=== PATIENT | female | born 1970 | race Caucasian/White ===

== ENCOUNTER 2016-08-27 13:16 | Emergency (ER) | payer OTHER ==
--- NOTE | 2016-08-27 13:40 | ER Document Report ---
ED Medical Screen (RME) - General Chief Complaint: Headache Stated Complaint: HEADACHE Notes: migraine [place] for 1 week. TRAVEL OUTSIDE OF THE [place] IN LAST 30 DAYS: No - Related Data Allergies/Adverse Reactions: nitrofurantoin [From Macrobid] Allergy (Intermediate, Verified 08/27/16 13:37) liver enlargement nitrofurantoin macrocrystalline [From Macrobid] Allergy (Intermediate, Verified 08/27/16 13:37) liver enlargement Past Medical History - Social History Chew tobacco use (# tins/day): No Frequency of alcohol use: None Drug Abuse: None - Past Medical History Cardiac Medical History: Reports: Hx Atrial Fibrillation, Hx Hypercholesterolemia Denies: Hx Heart Attack, Hx Hypertension Pulmonary Medical History: Reports: Hx Asthma, Hx Pneumonia Denies: Hx Bronchitis, Hx COPD Neurological Medical History: Denies: Hx Seizures Renal/ Medical History: Reports: Hx Kidney Stones, Hx Ovarian Cysts. Denies: Hx Peritoneal Dialysis GI Medical History: Reports: Hx Gastroesophageal Reflux Disease, Hx Colonoscopy , Hx Endoscopy Musculoskeltal Medical History: Denies Hx Arthritis, Reports Hx Musculoskeletal Trauma Psychiatric Medical History: Denies: Hx Depression Traumatic Medical History: Reports: Hx Fractures Past Surgical History: Reports: Hx Appendectomy, Hx Nose Surgery - sinus sx x 5 , Hx Orthopedic Surgery - bunion, Hx Tonsillectomy, Hx Tubal Ligation. Denies: Hx Hysterectomy - Immunizations Hx Diphtheria, Pertussis, Tetanus Vaccination: No Physical Exam - Vital signs Vitals: Temp Pulse Resp BP Pulse Ox 98.2 F 95 16 114/81 100 08/27/16 13:31 08/27/16 13:31 08/27/16 13:31 08/27/16 13:31 08/27/16 13:31 Course - Vital Signs Vital signs: Temp Pulse Resp BP Pulse Ox 98.2 F 95 16 114/81 100 08/27/16 13:31 08/27/16 13:31 08/27/16 13:31 08/27/16 13:31 08/27/16 13:31
[2016-08-27 14:26] LABS: ABSOLUTE EOSINOPHILS # (AUTO) 0.1 10^3/uL (0.0-0.6); ABSOLUTE LYMPHOCYTES (AUTO) 2.2 10^3/uL (0.5-4.7); ABSOLUTE MONOCYTES (AUTO) 0.6 10^3/uL (0.1-1.4); ABSOLUTE NEUT (AUTO) 4.1 10^3/uL (1.7-8.2); BASOPHILS % (AUTO) 0.4 % (0-2); EOSINOPHILS % (AUTO) 2.1 % (0-6); HEMATOCRIT 42.5 % (36.0-47.0); HEMOGLOBIN 14.2 g/dL (12.0-15.5); HGB HCT DIFFERENCE 0.1; LYMPHOCYTES % (AUTO) 30.8 % (13-45); MEAN CORPUSCULAR HEMOGLOBIN 30.3 pg (27.0-33.4); MEAN CORPUSCULAR HGB CONC 33.5 g/dL (32.0-36.0); MEAN CORPUSCULAR VOLUME 91 fl (80-97); MONOCYTES % (AUTO) 9.2 % (3-13); RED BLOOD COUNT 4.69 10^6/uL (3.72-5.28); RED CELL DISTRIBUTION WIDTH 14.1 % (11.5-14.0); SEGMENTED NEUTROPHILS % (AUTO) 57.5 % (42-78); WHITE BLOOD COUNT 7.1 10^3/uL (4.0-10.5)
[2016-08-27 14:28] LABS: APPEARANCE,URINE SLIGHTLY-CLOUDY; BILIRUBIN,URINE NEGATIVE (NEGATIVE); GLUCOSE, URINE NEGATIVE (NEGATIVE); KETONES,URINE NEGATIVE (NEGATIVE); LEUKOCYTE ESTERASE,URINE TRACE (NEGATIVE); NITRITE,URINE NEGATIVE (NEGATIVE); PROTEIN,URINE NEGATIVE (NEGATIVE); URINE SPECIFIC GRAVITY 1.016; UROBILINOGEN,URINE NEGATIVE mg/dL (<2.0)
[2016-08-27 14:37] LABS: ALANINE AMINOTRANSFERASE 33 U/L (9-52); ALBUMIN 4.5 g/dL (3.5-5.0); ALKALINE PHOSPHATASE 82 U/L (38-126); ANION GAP 12 (5-19); ASPARTATE AMINO TRANSFERASE 19 U/L (14-36); BILIRUBIN,TOTAL 0.5 mg/dL (0.2-1.3); BLOOD UREA NITROGEN 13 mg/dL (7-20); CALCIUM 9.6 mg/dL (8.4-10.2); CARBON DIOXIDE 25 mmol/L (22-30); CHLORIDE 106 mmol/L (98-107); CREATININE RESULT 0.79 mg/dL (0.52-1.25); GLUCOSE 71 mg/dL (75-110); POTASSIUM 4.9 mmol/L (3.6-5.0); SODIUM 142.8 mmol/L (137-145); TOTAL PROTEIN 7.3 g/dL (6.3-8.2)
[2016-08-27] MEDS ORDERED: DIPHENHYDRAMINE HCL 50 MG CAPSULE PO ONE (16:33)
[2016-08-27] MEDS ORDERED: PROCHLORPERAZINE EDISYLATE INJ 10 MG/2 ML VIAL IM ONE (16:33)
--- NOTE | 2016-08-27 17:45 | ER Document Report ---
ED General - General Chief Complaint: Headache Stated Complaint: HEADACHE Mode of Arrival: Ambulatory Information source: Patient Notes: 46-year-old female history of chronic migraine headaches and multiple previous episodes of sinusitis presents with complaints of right-sided pain from her eye to her head. Patient denies any nasal discharge but notes previous sinusitis had no discharge either. Denies any fevers or chills nausea vomiting or diarrhea denies any light sensitivity TRAVEL OUTSIDE OF THE [place] IN LAST 30 DAYS: No - HPI Onset: Last week Onset/Duration: Persistent Quality of pain: Achy Severity: Mild Pain Level: 1 Associated symptoms: Headache, Nausea Exacerbated by: Denies Relieved by: Denies Similar symptoms previously: Yes Recently seen / treated by doctor: Yes - patient seen by Dr. velazquez - Related Data Allergies/Adverse Reactions: nitrofurantoin [From Macrobid] Allergy (Intermediate, Verified 08/27/16 13:37) liver enlargement nitrofurantoin macrocrystalline [From Macrobid] Allergy (Intermediate, Verified 08/27/16 13:37) liver enlargement Past Medical History - Social History Smoking Status: Never Smoker Cigarette use (# per day): No Chew tobacco use (# tins/day): No Smoking Education Provided: No Frequency of alcohol use: None Drug Abuse: None Family History: Arthritis, CAD, CVA, DM, Hyperlipidemia, Hypertension Patient has suicidal ideation: No Patient has homicidal ideation: No - Past Medical History Cardiac Medical History: Reports: Hx Atrial Fibrillation, Hx Hypercholesterolemia Denies: Hx Heart Attack, Hx Hypertension Pulmonary Medical History: Reports: Hx Asthma, Hx Pneumonia Denies: Hx Bronchitis, Hx COPD Neurological Medical History: Denies: Hx Seizures Renal/ Medical History: Reports: Hx Kidney Stones, Hx Ovarian Cysts. Denies: Hx Peritoneal Dialysis GI Medical History: Reports: Hx Gastroesophageal Reflux Disease, Hx Colonoscopy , Hx Endoscopy Musculoskeltal Medical History: Denies Hx Arthritis, Reports Hx Musculoskeletal Trauma Psychiatric Medical History: Denies: Hx Depression Traumatic Medical History: Reports: Hx Fractures Past Surgical History: Reports: Hx Appendectomy, Hx Nose Surgery - sinus sx x 5 , Hx Orthopedic Surgery - bunion, Hx Tonsillectomy, Hx Tubal Ligation. Denies: Hx Hysterectomy - Immunizations Hx Diphtheria, Pertussis, Tetanus Vaccination: No Review of Systems - Review of Systems Notes: REVIEW OF SYSTEMS: CONSTITUTIONAL : Denies fever, chills, or sweats. Denies recent illness. EENT: Admits to photophobia . CARDIOVASCULAR: Denies chest pain. Denies palpitations or racing or irregular heart beat. Denies ankle edema. RESPIRATORY: Denies cough, cold, or chest congestion. Denies shortness of breath, difficulty breathing, or wheezing. GASTROINTESTINAL: Admits nausea. GENITOURINARY: Denies difficulty urinating, painful urination, burning, frequency, blood in urine, or discharge. FEMALE GENITOURINARY: Denies vaginal bleeding, heavy or abnormal periods, irregular periods. Denies vaginal discharge or odor. MUSCULOSKELETAL: Denies back or neck pain or stiffness. Denies joint pain or swelling. SKIN: Denies rash, lesions or sores. HEMATOLOGIC : Denies easy bruising or bleeding. LYMPHATIC: Denies swollen, enlarged glands. NEUROLOGICAL: Admits to headache PSYCHIATRIC: Denies anxiety or stress. Denies depression, suicidal ideation, or homicidal ideation. ALL OTHER SYSTEMS REVIEWED AND NEGATIVE. Dictation was performed using [employer] voice recognition software PHYSICAL EXAMINATION: GENERAL: Well-appearing, well-nourished and in no acute distress. HEAD: Atraumatic, normocephalic. EYES: Pupils equal round and reactive to light, extraocular movements intact, conjunctiva are normal. ENT: Nares patent, oropharynx clear without exudates. Moist mucous membranes. NECK: Normal range of motion, supple without lymphadenopathy LUNGS: Breath sounds clear to auscultation bilaterally and equal. No wheezes rales or rhonchi. HEART: Regular rate and rhythm without murmurs ABDOMEN: Soft, nontender, nondistended abdomen. No guarding, no rebound. No masses appreciated. Female : deferred Musculoskeletal: Normal range of motion, no pitting or edema. No cyanosis. NEUROLOGICAL: Cranial nerves grossly intact. Normal speech, normal gait. Normal sensory, motor exams PSYCH: Normal mood, normal affect. SKIN: Warm, Dry, normal turgor, no rashes or lesions noted. Physical Exam - Vital signs Vitals: Temp Pulse Resp BP Pulse Ox 98.2 F 95 16 114/81 100 08/27/16 13:31 08/27/16 13:31 08/27/16 13:31 08/27/16 13:31 08/27/16 13:31 Course - Re-evaluation Re-evalutation: 08/27/16 23:22 Patient treated for migraine headache but given history of chronic sinusitis and will treated within the buttocks as well. I will have the patient follow- up with her neurologist for reevaluation. CT of the head was performed given the history of stents for her sinus infections, no obvious abnormality was noted After performing a Medical Screening Examination, I estimate there is LOW risk for ACUTE GLAUCOMA, TEMPORAL ARTERITIS, MENINGITIS, INCRANIAL HEMORRHAGE, or ISCHEMIC STROKE thus I consider the discharge disposition reasonable. The patient and I have discussed the diagnosis and risks, and we agree with discharging home with close follow-up with the understanding that symptoms and presentations can change. We also discussed returning to the Emergency Department immediately if new or worsening symptoms occur. We have discussed the symptoms which are most concerning (e.g., changing or worsening symptoms, new numbness or weakness, vomiting, fever) that necessitate immediate return. - Vital Signs Vital signs: Temp Pulse Resp BP Pulse Ox 98 F 100 16 113/80 99 08/27/16 17:47 08/27/16 17:47 08/27/16 17:47 08/27/16 17:47 08/27/16 17:47 - Laboratory Result Diagrams: 08/27/16 13:55 08/27/16 13:55 Laboratory results interpreted by me: 08/27/16 08/27/16 08/27/16 13:55 13:55 14:00 RDW 14.1 H Glucose 71 L Urine Blood LARGE H Ur Leukocyte Esterase TRACE H - Diagnostic Test Radiology reviewed: Image reviewed, Reports reviewed - no acute abnormaliy Discharge - Discharge Clinical Impression: Migraine headache Qualifiers: Migraine type: unspecified Status migrainosus presence: without status migrainosus Intractability: not intractable Qualified Code(s): G43.909 - Migraine, unspecified, not intractable, without status migrainosus Sinusitis Qualifiers: Sinusitis location: frontal Chronicity: acute Recurrence: recurrent Qualified Code(s): J01.11 - Acute recurrent frontal sinusitis Condition: Stable Disposition: HOME, SELF-CARE Instructions: Headache ([facility]) Prescriptions: Azithromycin 500 mg PO DAILY 7 Days Referrals: EZIO GARRIDO MD [Primary Care Provider] - Follow up as needed JONEL VELAZQUEZ MD [ACTIVE STAFF] - Follow up tomorrow
[2016-08-27 17:52] VITALS: BP 113/80
== END 2016-08-27 17:47 | disposition home or self-care (01) ==
LOC: ER 13:16
DX: G43.909 Migraine, unspecified, not intractable, without status migrainosus (principal); J01.11 Acute recurrent frontal sinusitis; H92.01 Otalgia, right ear; J45.909 Unspecified asthma, uncomplicated; Z88.1 Allergy status to other antibiotic agents; Z98.890 Other specified postprocedural states
CPT/HCPCS: 99284; 96372; 36415; 85025; 80053; 81001; 70450; J0780

== ENCOUNTER 2017-04-29 07:12 | Emergency (ER) | payer OTHER ==
[2017-04-29] MEDS ORDERED: ONDANSETRON HCL INJ/PF 4 MG/2 ML SDV IV ONE (07:26)
--- NOTE | 2017-04-29 07:38 | ER Document Report ---
ED General - General Chief Complaint: Vomiting Stated Complaint: VOMITING Time Seen by Provider: 04/29/17 07:29 TRAVEL OUTSIDE OF THE [place] IN LAST 30 DAYS: No - HPI Notes: Patient is a 47-year-old female who presents to the ED complaining of nausea and vomiting over the last 4 hours. Patient states that she did try some antinausea medication without any relief. Patient states that she did eat at [employer] and [employer] for dinner last evening. Patient also [place] many of the [employer] that recently came back from training had GI illnesses. Patient states that her began feeling uneasy last night as well. Patient has a medical history of asthma, allergies, common variable immune deficiency, and hypercholesterolemia. Patient states that otherwise she feels well. H/o appendectomy. BM's have been normal. Denies any headache, fever, neck pain, URI, sore throat, chest pain, palpitations, syncope, cough, shortness of breath, wheeze, dyspnea, abdominal pain, diarrhea, urinary retention, dysuria, hematuria, or rash. - Related Data Allergies/Adverse Reactions: nitrofurantoin [From Macrobid] Allergy (Intermediate, Verified 04/29/17 07:23) liver enlargement nitrofurantoin macrocrystalline [From Macrobid] Allergy (Intermediate, Verified 04/29/17 07:23) liver enlargement Past Medical History - Social History Smoking Status: Unknown if Ever Smoked Family History: Arthritis, CAD, CVA, DM, Hyperlipidemia, Hypertension Patient has suicidal ideation: No Patient has homicidal ideation: No - Past Medical History Cardiac Medical History: Reports: Hx Atrial Fibrillation, Hx Hypercholesterolemia Denies: Hx Heart Attack, Hx Hypertension Pulmonary Medical History: Reports: Hx Asthma, Hx Pneumonia Denies: Hx Bronchitis, Hx COPD Neurological Medical History: Denies: Hx Seizures Renal/ Medical History: Reports: Hx Kidney Stones, Hx Ovarian Cysts. Denies: Hx Peritoneal Dialysis GI Medical History: Reports: Hx Gastroesophageal Reflux Disease, Hx Colonoscopy , Hx Endoscopy Musculoskeltal Medical History: Denies Hx Arthritis, Reports Hx Musculoskeletal Trauma Psychiatric Medical History: Denies: Hx Depression Traumatic Medical History: Reports: Hx Fractures Past Surgical History: Reports: Hx Appendectomy, Hx Nose Surgery - sinus sx x 5 , Hx Orthopedic Surgery - bunion, Hx Tonsillectomy, Hx Tubal Ligation. Denies: Hx Hysterectomy - Immunizations Hx Diphtheria, Pertussis, Tetanus Vaccination: No Review of Systems - Review of Systems Notes: REVIEW OF SYSTEMS: CONSTITUTIONAL : Denies fever, chills, or sweats. Denies recent illness. EENT: Denies eye, ear, throat, or mouth pain or symptoms. Denies nasal or sinus congestion or discharge. Denies throat, tongue, or mouth swelling or difficulty swallowing. CARDIOVASCULAR: Denies chest pain. Denies palpitations or racing or irregular heart beat. Denies ankle edema. RESPIRATORY: Denies cough, cold, or chest congestion. Denies shortness of breath, difficulty breathing, or wheezing. GASTROINTESTINAL: see hpi GENITOURINARY: Denies difficulty urinating, painful urination, burning, frequency, blood in urine, or discharge. FEMALE GENITOURINARY: Denies vaginal bleeding, heavy or abnormal periods, irregular periods. Denies vaginal discharge or odor. MUSCULOSKELETAL: Denies back or neck pain or stiffness. Denies joint pain or swelling. SKIN: Denies rash, lesions or sores. NEUROLOGICAL: Denies confusion or altered mental status. Denies passing out or loss of consciousness. Denies dizziness or lightheadedness. Denies headache. Denies weakness or paralysis or loss of use of either side. Denies problems with gait or speech. Denies sensory loss, numbness, or tingling. ALL OTHER SYSTEMS REVIEWED AND NEGATIVE. Dictation was performed using [employer] voice recognition software Physical Exam - Vital signs Vitals: Temp Pulse Resp BP Pulse Ox 97.3 F 109 H 16 121/79 99 04/29/17 07:16 04/29/17 07:16 04/29/17 07:16 04/29/17 07:16 04/29/17 07:16 Notes: PHYSICAL EXAMINATION: GENERAL: Well-appearing, well-nourished and in no acute distress. A&O x4 HEAD: Atraumatic, normocephalic. EYES: Pupils equal round and reactive to light, extraocular movements intact, sclera anicteric, conjunctiva are normal. ENT:Nares patent and without discharge. oropharynx clear without exudates. No tonsilar hypertrophy or erythema. Moist mucous membranes. No sinus tenderness. NECK: Normal range of motion, supple without lymphadenopathy LUNGS: Breath sounds clear to auscultation bilaterally and equal. No wheezes rales or rhonchi. HEART: Regular rate and rhythm without murmurs, rubs, gallops. ABDOMEN: Soft, nontender, nondistended abdomen. No guarding, no rebound. No masses appreciated. Normal bowel sounds present. No CVA tenderness bilaterally. Extremities: No cyanosis, clubbing, or edema b/l. Peripheral pulses 2+. Capillary refill less than 3 seconds. NEUROLOGICAL: Normal speech, normal gait. Normal sensory, motor exams PSYCH: Normal mood, normal affect. SKIN: Warm, Dry, normal turgor, no rashes or lesions noted. Course - Re-evaluation Re-evalutation: 04/29/17 11:25 Patient is an afebrile, well-hydrated, 47-year-old female who presents to the ED with nausea and vomiting. Vitals are stable. PE otherwise unremarkable. CBC (most likely elevated WBC from vomiting), CMP, lipase, urinalysis, urine all unremarkable for any acute pathology. 2 L normal saline was given IV. Zofran 8 mg IV and 10 mg Reglan was given which helped take away the nausea/vomiting. Patient has not vomited while in the ED since my initial evaluation. Patient is tolerating p.o. Patient continues to have no pain or discomfort. Patient states that overall she is feeling better. Low suspicion/ risk for acute appendicitis, bowel obstruction, acute cholecystitis, acute cholangitis, perforated diverticulitis, incarcerated hernia, pancreatitis, perforated ulcer, peritonitis, sepsis, pelvic inflammatory disease, ectopic , tubo-ovarian abscess, ovarian torsion, or other systemic emergent condition at this time. Patient is aware that her condition can change from initial presentation and she needs to monitor symptoms closely and seek medical attention if any acute changes. I will send her home with a Rx for zofran to take as directed. Conservative measures otherwise for symptoms. Recheck with your PCM in 2-3 days. Consider consult with a subscription agent. Return to the ED with any worsening/concerning symptoms otherwise as reviewed in discharge. Patient is in agreement. - Vital Signs Vital signs: Temp Pulse Resp BP Pulse Ox 97.3 F 109 H 16 121/79 99 04/29/17 07:16 04/29/17 07:16 04/29/17 07:16 04/29/17 07:16 04/29/17 07:16 - Laboratory Result Diagrams: 04/29/17 07:50 04/29/17 07:50 Laboratory results interpreted by me: 04/29/17 04/29/17 07:50 07:50 WBC 14.7 H Seg Neutrophils % 87.2 H Lymphocytes % 5.9 L Absolute Neutrophils 12.8 H Sodium 145.2 H Discharge - Discharge Clinical Impression: Nausea and vomiting Qualifiers: Vomiting type: unspecified Vomiting Intractability: non-intractable Qualified Code(s): R11.2 - Nausea with vomiting, unspecified Condition: Stable Disposition: HOME, SELF-CARE Instructions: Intravenous (IV) Fluids ([facility]), Vomiting ([facility]), Antinausea Medication ([facility]) Additional Instructions: Maintain adequate fluid and food intake [place] diet ([employer] Bananas, rice, apples, toast, etc Zofran as needed tylenol if needed Monitor for any worsening symptoms Make sure you are staying hydrated enough to urinate and have normal BM's Recheck with your PCM in 2-3 days Consider consult with Gastroenterology for ongoing/worsening symptoms Return to the ED with any worsening symptoms and/or development of fever, headache, chest pain, palpitations, syncope, shortness of breath, trouble breathing, abdominal pain, n/v/d, blood in stool/urine, weakness, or other worsening symptoms that are concerning to you. Prescriptions: Ondansetron [Zofran Odt 4 mg Tablet] 1 - 2 tab PO Q4H PRN #15 tab.rapdis PRN Reason: For Nausea/Vomiting Referrals: EZIO GARRIDO MD [Primary Care Provider] - 05/01/17 MARVIN GONG MD [ACTIVE STAFF] - Follow up in 3-5 days
[2017-04-29] MEDS: NORMAL SALINE 1000 ML 1,000 ML IV PRN ×2 (08:03→09:18)
[2017-04-29 08:10] LABS: ABSOLUTE EOSINOPHILS # (AUTO) 0.1 10^3/uL (0.0-0.6); ABSOLUTE LYMPHOCYTES (AUTO) 0.9 10^3/uL (0.5-4.7); ABSOLUTE MONOCYTES (AUTO) 0.9 10^3/uL (0.1-1.4); ABSOLUTE NEUT (AUTO) 12.8 10^3/uL (1.7-8.2); BASOPHILS % (AUTO) 0.2 % (0-2); EOSINOPHILS % (AUTO) 0.6 % (0-6); HEMATOCRIT 42.3 % (36.0-47.0); HEMOGLOBIN 14.8 g/dL (12.0-15.5); HGB HCT DIFFERENCE 2.1; LYMPHOCYTES % (AUTO) 5.9 % (13-45); MEAN CORPUSCULAR HEMOGLOBIN 31.9 pg (27.0-33.4); MEAN CORPUSCULAR HGB CONC 35.1 g/dL (32.0-36.0); MEAN CORPUSCULAR VOLUME 91 fl (80-97); MONOCYTES % (AUTO) 6.1 % (3-13); RED BLOOD COUNT 4.66 10^6/uL (3.72-5.28); SEGMENTED NEUTROPHILS % (AUTO) 87.2 % (42-78); WHITE BLOOD COUNT 14.7 10^3/uL (4.0-10.5)
[2017-04-29 08:30] LABS: ALANINE AMINOTRANSFERASE 24 U/L (9-52); ALBUMIN 4.5 g/dL (3.5-5.0); ALKALINE PHOSPHATASE 76 U/L (38-126); ANION GAP 10 (5-19); ASPARTATE AMINO TRANSFERASE 23 U/L (14-36); BILIRUBIN,DIRECT 0.4 mg/dL (0.0-0.4); BILIRUBIN,TOTAL 0.5 mg/dL (0.2-1.3); BLOOD UREA NITROGEN 13 mg/dL (7-20); CALCIUM 9.3 mg/dL (8.4-10.2); CARBON DIOXIDE 28 mmol/L (22-30); CHLORIDE 107 mmol/L (98-107); CREATININE RESULT 0.72 mg/dL (0.52-1.25); GLUCOSE 102 mg/dL (75-110); LIPASE 130.8 U/L (23-300); POTASSIUM 4.8 mmol/L (3.6-5.0); SODIUM 145.2 mmol/L (137-145); TOTAL PROTEIN 7.6 g/dL (6.3-8.2)
[2017-04-29 09:29] LABS: APPEARANCE,URINE CLEAR; BILIRUBIN,URINE NEGATIVE (NEGATIVE); GLUCOSE, URINE NEGATIVE (NEGATIVE); KETONES,URINE NEGATIVE (NEGATIVE); LEUKOCYTE ESTERASE,URINE NEGATIVE (NEGATIVE); NITRITE,URINE NEGATIVE (NEGATIVE); PROTEIN,URINE NEGATIVE (NEGATIVE); URINE SPECIFIC GRAVITY 1.008; UROBILINOGEN,URINE NEGATIVE mg/dL (<2.0)
[2017-04-29] MEDS ORDERED: METOCLOPRAMIDE HCL INJ/PF 10 MG/2 ML SDV IV ONE (09:29)
[2017-04-29 12:22] VITALS: BP 102/50
== END 2017-04-29 11:55 | disposition home or self-care (01) ==
LOC: ER 07:12
DX: R11.2 Nausea with vomiting, unspecified (principal); Z79.899 Other long term (current) drug therapy
CPT/HCPCS: 99284; 96361; 96374; 96375; 36415; 83690; 85025; 81025; 80053; 81001; J2765; J2405; J7030

== ENCOUNTER 2017-08-04 15:33 | Emergency (ER) | payer OTHER ==
[2017-08-04] MEDS ORDERED: DIPHENHYDRAMINE HCL 50 MG/ML VIAL IV ONE (17:46)
[2017-08-04] MEDS ORDERED: NORMAL SALINE 1000 ML 1,000 ML IV ONE (17:46)
[2017-08-04] MEDS ORDERED: PROCHLORPERAZINE EDISYLATE INJ 10 MG/2 ML VIAL IV ONE (17:46)
[2017-08-04] MEDS ORDERED: KETOROLAC TROMETHAMINE INJ/PF 30 MG/1 ML SDV IV ONE (17:46)
[2017-08-04] MEDS ORDERED: DEXAMETHASONE SOD PHOS INJ 10 MG/1 ML VIAL IV ONE (17:46)
--- NOTE | 2017-08-04 17:48 | ER Document Report ---
ED Headache - General Chief Complaint: Headache >24 hrs old Stated Complaint: HEADACHE Time Seen by Provider: 08/04/17 17:15 Mode of Arrival: Ambulatory Information source: Patient Notes: Patient presents complaining of frontal headache that occasionally goes to right side of her head off and on for the past 3 weeks. Patient does report sinus congestion with yellow sputum. Patient states that she just recently saw her ENT doctor last week who performed a fiberoptic exam and confirm that she does not have active sinusitis at this time. Patient does report a history of migraines and states that she is maxed out on her home medications without improvement of her symptoms. Patient denies any fever or neck pain. TRAVEL OUTSIDE OF THE [place] IN LAST 30 DAYS: No - HPI Patient complains to provider of: Headache Patient reports: Occasional migraines Onset: Other - 3 weeks off and on Onset was: Gradual Timing: Still present Quality of pain: Achy Pain Level: 5 Context: denies: Head injury Associated symptoms: denies: Chills, Confusion, Fever, Nausea/vomiting, Photophobia Similar symptoms previously: Yes Recently seen / treated by doctor: Yes - Related Data Allergies/Adverse Reactions: nitrofurantoin [From Macrobid] Allergy (Intermediate, Verified 08/04/17 15:36) liver enlargement nitrofurantoin macrocrystalline [From Macrobid] Allergy (Intermediate, Verified 08/04/17 15:36) liver enlargement Past Medical History - General Information source: Patient - Social History Smoking Status: Never Smoker Frequency of alcohol use: None Drug Abuse: None Lives with: Spouse/Significant other Family History: Arthritis, CAD, CVA, DM, Hyperlipidemia, Hypertension - Medical History Medical History: Other - Common immune variable disorder - Past Medical History Cardiac Medical History: Reports: Hx Atrial Fibrillation, Hx Hypercholesterolemia Denies: Hx Heart Attack, Hx Hypertension Pulmonary Medical History: Reports: Hx Asthma, Hx Pneumonia Denies: Hx Bronchitis, Hx COPD Neurological Medical History: Denies: Hx Seizures Renal/ Medical History: Reports: Hx Kidney Stones, Hx Ovarian Cysts. Denies: Hx Peritoneal Dialysis GI Medical History: Reports: Hx Gastroesophageal Reflux Disease, Hx Colonoscopy , Hx Endoscopy Musculoskeltal Medical History: Denies Hx Arthritis, Reports Hx Musculoskeletal Trauma Psychiatric Medical History: Denies: Hx Depression Traumatic Medical History: Reports: Hx Fractures Past Surgical History: Reports: Hx Appendectomy, Hx Nose Surgery - sinus sx x 5 , Hx Orthopedic Surgery - bunion, Hx Tonsillectomy, Hx Tubal Ligation. Denies: Hx Hysterectomy - Immunizations Hx Diphtheria, Pertussis, Tetanus Vaccination: No Review of Systems - Review of Systems Constitutional: No symptoms reported. denies: Fever, Recent illness EENT: Nose congestion, Sinus pressure Cardiovascular: No symptoms reported Respiratory: No symptoms reported. denies: Cough, Short of breath Gastrointestinal: No symptoms reported. denies: Nausea, Vomiting Genitourinary: No symptoms reported Female Genitourinary: No symptoms reported Musculoskeletal: No symptoms reported. denies: Back pain, Neck pain Skin: No symptoms reported Hematologic/Lymphatic: No symptoms reported Neurological/Psychological: Headaches. denies: Confusion, Weakness, Lost consciousness Physical Exam - Vital signs Vitals: Temp Pulse Resp BP Pulse Ox 98.3 F 105 H 20 126/92 H 98 08/04/17 15:47 08/04/17 15:47 08/04/17 15:47 08/04/17 15:47 08/04/17 15:47 - General General appearance: Appears well, Alert In distress: None - HEENT Head: Normocephalic, Atraumatic Eyes: Normal Conjunctiva: Normal Eyelashes: Normal Pupils: PERRL Ears: Normal External canal: Normal Tympanic membrane: Normal Sinus: Frontal Nasal: Normal Mouth/Lips: Normal Mucous membranes: Dry Pharynx: Normal Neck: Normal, Supple. No: Brudzinski, Kernig's, Lymphadenopathy, Meningismus - Respiratory Respiratory status: No respiratory distress Chest status: Nontender Breath sounds: Normal. No: Rales, Rhonchi, Stridor, Wheezing Chest palpation: Normal - Cardiovascular Rhythm: Regular Heart sounds: S1 appreciated, S2 appreciated Murmur: No - Back Back: Normal, Nontender. No: CVA tenderness, Vertebra tenderness - Extremities General upper extremity: Normal inspection, Normal ROM General lower extremity: Normal inspection, Normal ROM - Neurological Neuro grossly intact: Yes Cognition: Normal [place] Coma Scale Eye Opening: Spontaneous [place] Coma Scale Verbal: Oriented [place] Coma Scale Motor: Obeys Commands Trinity Coma Scale Total: 15 Speech: Normal Cranial nerves: Normal. No: Facial palsy, Tongue deviation - Psychological Associated symptoms: Normal affect, Normal mood - Skin Skin Temperature: Warm Skin Moisture: Dry Skin Color: Normal Course - Re-evaluation Re-evalutation: 08/04/17 17:[address] Badillo regarding patient presentation and diagnostic evaluation. Does recommend giving patient IV fluids, Decadron as well as headache cocktail including Compazine and Toradol and Benadryl. Additionally recommends obtaining CBC. 08/04/17 18:47 Patient reports that headache is improved although not resolved. Patient rates headache pain 3/5 scale 08/04/17 19:25 Patient reports headache pain is improved and she feels that she can manage her symptoms at home. The patient presents with headache without signs of [employer]ON[employer] GRADER bleed , stroke, infection, or other serious etiology. The patient is neurologically intact. Given the extremely low risk of these diagnoses further testing and evaluation for these possibilities does not appear to be indicated at this time. The patient has been instructed to return if the symptoms worsen or change in any way. - Vital Signs Vital signs: Temp Pulse Resp BP Pulse Ox 97.8 F 89 18 109/67 99 08/04/17 18:58 08/04/17 18:58 08/04/17 18:58 08/04/17 18:58 08/04/17 18:58 - Laboratory Result Diagrams: 08/04/17 18:20 Laboratory results interpreted by me: Labs- Entire Visit 08/04/17 18:20 WBC 8.0 RBC 4.46 Hgb 14.2 Hct 40.8 MCV 91 MCH 31.8 MCHC 34.8 RDW 13.7 Plt Count 288 Seg Neutrophils % 52.3 Lymphocytes % 34.0 Monocytes % 11.3 Eosinophils % 1.9 Basophils % 0.5 Absolute Neutrophils 4.2 Absolute Lymphocytes 2.7 Absolute Monocytes 0.9 Absolute Eosinophils 0.2 Absolute Basophils 0.0 08/04/17 21:07 Labs- Entire Visit 08/04/17 18:20 WBC 8.0 RBC 4.46 Hgb 14.2 Hct 40.8 MCV 91 MCH 31.8 MCHC 34.8 RDW 13.7 Plt Count 288 Seg Neutrophils % 52.3 Lymphocytes % 34.0 Monocytes % 11.3 Eosinophils % 1.9 Basophils % 0.5 Absolute Neutrophils 4.2 Absolute Lymphocytes 2.7 Absolute Monocytes 0.9 Absolute Eosinophils 0.2 Absolute Basophils 0.0 Discharge - Discharge Clinical Impression: Headache Qualifiers: Headache type: unspecified Headache chronicity pattern: acute headache Intractability: not intractable Qualified Code(s): R51 - Headache Condition: Stable Disposition: HOME, SELF-CARE Instructions: Intravenous Compazine for Headaches ([facility]), Headache ([facility]), Steroid Medication, Toradol Injection ([facility]) Additional Instructions: Return immediately for any new or worsening symptoms Followup with your primary care provider, call tomorrow to make a followup appointment Referrals: EZIO GARRIDO MD [Primary Care Provider] - Follow up tomorrow
[2017-08-04 18:32] LABS: ABSOLUTE EOSINOPHILS # (AUTO) 0.2 10^3/uL (0.0-0.6); ABSOLUTE LYMPHOCYTES (AUTO) 2.7 10^3/uL (0.5-4.7); ABSOLUTE MONOCYTES (AUTO) 0.9 10^3/uL (0.1-1.4); ABSOLUTE NEUT (AUTO) 4.2 10^3/uL (1.7-8.2); BASOPHILS % (AUTO) 0.5 % (0-2); EOSINOPHILS % (AUTO) 1.9 % (0-6); HEMATOCRIT 40.8 % (36.0-47.0); HEMOGLOBIN 14.2 g/dL (12.0-15.5); MEAN CORPUSCULAR HEMOGLOBIN 31.8 pg (27.0-33.4); MEAN CORPUSCULAR HGB CONC 34.8 g/dL (32.0-36.0); MEAN CORPUSCULAR VOLUME 91 fl (80-97); MONOCYTES % (AUTO) 11.3 % (3-13); PLATELET COUNT 288 10^3/uL (150-450); RED BLOOD COUNT 4.46 10^6/uL (3.72-5.28); RED CELL DISTRIBUTION WIDTH 13.7 % (11.5-14.0); SEGMENTED NEUTROPHILS % (AUTO) 52.3 % (42-78); TOTAL CELLS COUNTED % (AUTO) 100 %
[2017-08-04] MEDS ORDERED: MORPHINE SULFATE 10 MG/ML INJ IV ONE (18:47)
[2017-08-04 19:17] VITALS: BP 109/67
== END 2017-08-04 19:48 | disposition home or self-care (01) ==
LOC: ER 15:33
DX: R51 Headache (principal); R09.81 Nasal congestion
CPT/HCPCS: 99283; 96361; 96374; 96375; 36415; 85025; J1200; J1885; J2270; J0780; J7030; J1100

== ENCOUNTER 2017-11-17 10:23 | Emergency (ER) | payer OTHER ==
[2017-11-17] MEDS ORDERED: DIPHENHYDRAMINE HCL 50 MG/ML VIAL IV ONE (10:38)
[2017-11-17] MEDS ORDERED: PROCHLORPERAZINE EDISYLATE INJ 10 MG/2 ML VIAL IV ONE (10:38)
[2017-11-17] MEDS ORDERED: KETOROLAC TROMETHAMINE 60 MG/2 ML SDV IV ONE (10:38)
[2017-11-17] MEDS ORDERED: NORMAL SALINE 1000 ML 1,000 ML IV ONE (10:38)
--- NOTE | 2017-11-17 10:39 | ER Document Report ---
ED Medical Screen (RME) - General Mode of Arrival: Ambulatory Information source: Patient TRAVEL OUTSIDE OF THE [place] IN LAST 30 DAYS: No <GLORY SOTO - Last Filed: 11/17/17 10:51> <CRISTY BONILLA - Last Filed: 11/17/17 11:50> - General Chief Complaint: Abdominal Pain Stated Complaint: HEAD PAIN,ABDOMINAL PAIN, NAUSEA Time Seen by Provider: 11/17/17 10:30 Notes: 47 y.o female with a PMHx of migraines, asthma, seasonal allergies and recent bladder surgery on 11/14/17. Patient presents to the ED with chest tightness, CAROLINA , sinus pain that she describes as pressure of onset 2 weeks ago. Pt reports that she originally thought her sx were due pollen allergies. She states that she saw her doctor at onset of sx and was prescribed pain medications and felt some relief but she stopped taking the medications for her surgery on 11/14/17 which was when the CAROLINA resumed. Pt reports that her surgery went well. Pt states that she has been having some upper abdominal pain that she thinks in unrelated to her surgery. She notes that she has been diaphoretic but thinks it might be from her medications. Pt denies any fever. She denies hx of pancreatitis. Her next appointment with ENT is on November 21. (GLORY SOTO) ENT initially prescribed her steroids and a Z-Stiven. (CRISTY BONILLA) - Related Data Allergies/Adverse Reactions: nitrofurantoin [From Macrobid] Allergy (Intermediate, Verified 11/17/17 10:36) liver enlargement nitrofurantoin macrocrystalline [From Macrobid] Allergy (Intermediate, Verified 11/17/17 10:36) liver enlargement Past Medical History - Social History Chew tobacco use (# tins/day): No Frequency of alcohol use: None Drug Abuse: None - Past Medical History Cardiac Medical History: Reports: Hx Atrial Fibrillation, Hx Hypercholesterolemia Denies: Hx Heart Attack, Hx Hypertension Pulmonary Medical History: Reports: Hx Asthma, Hx Pneumonia Denies: Hx Bronchitis, Hx COPD Neurological Medical History: Denies: Hx Seizures Renal/ Medical History: Reports: Hx Kidney Stones, Hx Ovarian Cysts. Denies: Hx Peritoneal Dialysis GI Medical History: Reports: Hx Gastroesophageal Reflux Disease, Hx Colonoscopy , Hx Endoscopy Musculoskeltal Medical History: Denies Hx Arthritis, Reports Hx Musculoskeletal Trauma Psychiatric Medical History: Denies: Hx Depression Traumatic Medical History: Reports: Hx Fractures Past Surgical History: Reports: Hx Appendectomy, Hx Nose Surgery - sinus sx x 5 , Hx Orthopedic Surgery - bunion, Hx Tonsillectomy, Hx Tubal Ligation. Denies: Hx Hysterectomy - Immunizations Hx Diphtheria, Pertussis, Tetanus Vaccination: No <GLORY SOTO - Last Filed: 11/17/17 10:51> Review of Systems - Review of Systems Constitutional: See HPI, Diaphoresis. denies: Fever EENT: Eye pain, Sinus pressure Cardiovascular: No symptoms reported Respiratory: See HPI, Other - chest tightness, asthma Gastrointestinal: See HPI, Abdominal pain - upper Genitourinary: No symptoms reported Female Genitourinary: No symptoms reported Musculoskeletal: No symptoms reported Skin: No symptoms reported Hematologic/Lymphatic: No symptoms reported Neurological/Psychological: See HPI, Headaches -: Yes All other systems reviewed and negative <GLORY SOTO - Last Filed: 11/17/17 10:51> Physical Exam <GLORY SOTO - Last Filed: 11/17/17 10:51> <CRISTY BONILLA - Last Filed: 11/17/17 11:50> - Vital signs Vitals: Temp Pulse Resp BP Pulse Ox 97.6 F 118 H 16 120/88 H 99 11/17/17 10:28 11/17/17 10:28 11/17/17 10:28 11/17/17 10:28 11/17/17 10:28 - Notes Notes: Physical Exam: General: Alert, appears well. HEENT: Normocephalic. Atraumatic. Sinus tenderness to percussion at frontal and RT maxillary sinuses. Neck: Supple. Respiratory: No respiratory distress. Abdominal: Normal Inspection. No distension. Extremities: Moves all four extremities. Neurological: Normal cognition. AAOx4. Normal speech. Psychological: Normal affect. Normal Mood. Skin: Warm. Dry. Normal color. (GLORY SOTO) Course - Laboratory Result Diagrams: 11/17/17 10:53 11/17/17 10:53 <CRISTY BONILLA - Last Filed: 11/17/17 11:50> - Vital Signs Vital signs: Temp Pulse Resp BP Pulse Ox 97.6 F 118 H 16 120/88 H 99 11/17/17 10:28 11/17/17 10:28 11/17/17 10:28 11/17/17 10:28 11/17/17 10:28 - Laboratory Laboratory results interpreted by me: 11/17/17 11/17/17 10:53 10:53 WBC 13.0 H Hgb 16.2 H Absolute Neutrophils 9.0 H Calcium 10.5 H Scribe Documentation - Scribe Written by Scribe:: Payal Argueta 11/17/17 1057 acting as scribe for :: Hieu <GLORY SOTO - Last Filed: 11/17/17 10:51>
[2017-11-17 11:12] LABS: ABSOLUTE LYMPHOCYTES (AUTO) 2.7 10^3/uL (0.5-4.7); ABSOLUTE MONOCYTES (AUTO) 1.1 10^3/uL (0.1-1.4); BASOPHILS % (AUTO) 0.2 % (0-2); EOSINOPHILS % (AUTO) 0.3 % (0-6); HEMATOCRIT 46.7 % (36.0-47.0); HEMOGLOBIN 16.2 g/dL (12.0-15.5); LYMPHOCYTES % (AUTO) 21.1 % (13-45); MEAN CORPUSCULAR HEMOGLOBIN 31.5 pg (27.0-33.4); MEAN CORPUSCULAR HGB CONC 34.6 g/dL (32.0-36.0); MEAN CORPUSCULAR VOLUME 91 fl (80-97); MONOCYTES % (AUTO) 8.6 % (3-13); PLATELET COUNT 289 10^3/uL (150-450); RED BLOOD COUNT 5.14 10^6/uL (3.72-5.28); RED CELL DISTRIBUTION WIDTH 13.9 % (11.5-14.0); SEGMENTED NEUTROPHILS % (AUTO) 69.8 % (42-78); TOTAL CELLS COUNTED % (AUTO) 100 %
[2017-11-17 11:33] LABS: ALANINE AMINOTRANSFERASE 31 U/L (9-52); ALBUMIN 4.9 g/dL (3.5-5.0); ALKALINE PHOSPHATASE 71 U/L (38-126); ANION GAP 14 (5-19); ASPARTATE AMINO TRANSFERASE 24 U/L (14-36); BILIRUBIN,DIRECT 0.3 mg/dL (0.0-0.4); BILIRUBIN,TOTAL 0.3 mg/dL (0.2-1.3); BLOOD UREA NITROGEN 16 mg/dL (7-20); CALCIUM 10.5 mg/dL (8.4-10.2); CARBON DIOXIDE 27 mmol/L (22-30); CHLORIDE 104 mmol/L (98-107); GLUCOSE 103 mg/dL (75-110); LIPASE 94.6 U/L (23-300); POTASSIUM 4.4 mmol/L (3.6-5.0); SODIUM 144.8 mmol/L (137-145)
[2017-11-17] MEDS ORDERED: LORAZEPAM 1 MG TABLET PO ONE (11:46)
[2017-11-17] MEDS ORDERED: METHYLPREDNISOLONE INJ 125 MG/2 ML SDV IV ONE (11:46)
--- NOTE | 2017-11-17 12:33 | ER Document Report ---
ED General - General Chief Complaint: Abdominal Pain Stated Complaint: HEAD PAIN,ABDOMINAL PAIN, NAUSEA Time Seen by Provider: 11/17/17 10:30 Mode of Arrival: Ambulatory Notes: 47 y.o female with a PMHx of migraines, asthma, seasonal allergies and recent bladder surgery on 11/14/17. Patient presents to the ED with chest tightness, [place] , sinus pain that she describes as pressure of onset 2 weeks ago. Pt reports that she originally thought her sx were due pollen allergies. She states that she saw her doctor and was prescribed azithromycin and prednisone which did help to relieve the headache but as soon as the prednisone was completed it returned. Patient does have a history of multiple sinus surgeries. She does have an ENT but states that she has been unable to have an appointment with him. She has associated nausea, vomiting and photophobia. She denies any weakness, slurred speech, difficulty with ambulation, visual changes, fever, recent illnesses, chest pain, shortness of breath, abdominal pain, dysuria hematuria. She does admit to headache, abdominal pain that has resolved upon my exam. TRAVEL OUTSIDE OF THE [place] IN LAST 30 DAYS: No - Related Data Allergies/Adverse Reactions: nitrofurantoin [From Macrobid] Allergy (Intermediate, Verified 11/17/17 10:36) liver enlargement nitrofurantoin macrocrystalline [From Macrobid] Allergy (Intermediate, Verified 11/17/17 10:36) liver enlargement Past Medical History - General Information source: Patient - Social History Smoking Status: Never Smoker Chew tobacco use (# tins/day): No Frequency of alcohol use: None Drug Abuse: None Family History: Arthritis, CAD, CVA, DM, Hyperlipidemia, Hypertension Patient has suicidal ideation: No Patient has homicidal ideation: No - Past Medical History Cardiac Medical History: Reports: Hx Atrial Fibrillation, Hx Hypercholesterolemia Denies: Hx Heart Attack, Hx Hypertension Pulmonary Medical History: Reports: Hx Asthma, Hx Pneumonia Denies: Hx Bronchitis, Hx COPD Neurological Medical History: Denies: Hx Seizures Renal/ Medical History: Reports: Hx Kidney Stones, Hx Ovarian Cysts. Denies: Hx Peritoneal Dialysis GI Medical History: Reports: Hx Gastroesophageal Reflux Disease, Hx Colonoscopy , Hx Endoscopy Musculoskeltal Medical History: Denies Hx Arthritis, Reports Hx Musculoskeletal Trauma Psychiatric Medical History: Denies: Hx Depression Traumatic Medical History: Reports: Hx Fractures Past Surgical History: Reports: Hx Appendectomy, Hx Nose Surgery - sinus sx x 5 , Hx Orthopedic Surgery - bunion, Hx Tonsillectomy, Hx Tubal Ligation. Denies: Hx Hysterectomy - Immunizations Hx Diphtheria, Pertussis, Tetanus Vaccination: No Review of Systems - Review of Systems Notes: She denies any weakness, slurred speech, difficulty with ambulation, visual changes, fever, recent illnesses, chest pain, shortness of breath, abdominal pain, dysuria hematuria. She does admit to headache, abdominal pain that has resolved upon my exam. Physical Exam - Vital signs Vitals: Temp Pulse Resp BP Pulse Ox 97.6 F 118 H 16 120/88 H 99 11/17/17 10:28 11/17/17 10:28 11/17/17 10:28 11/17/17 10:28 11/17/17 10:28 Interpretation: Normal, Tachycardic. No: Hypoxic, Tachypneic, Febrile - Notes Notes: PHYSICAL EXAMINATION: GENERAL: Well-appearing, well-nourished and in no acute distress. HEAD: Atraumatic, normocephalic. No temporal artery tenderness. EYES: Pupils equal round and reactive to light, extraocular movements intact, conjunctiva are normal. Normal funduscopic exam ENT: Nares patent, oropharynx clear without exudates. Moist mucous membranes. NECK: Normal range of motion, supple without lymphadenopathy LUNGS: Breath sounds clear to auscultation bilaterally and equal. No wheezes rales or rhonchi. HEART: Regular rate and rhythm without murmurs ABDOMEN: Soft, nontender, nondistended abdomen. No guarding, no rebound. No masses appreciated. Female : deferred Musculoskeletal: Normal range of motion, no pitting or edema. No cyanosis. NEUROLOGICAL: Cranial nerves grossly intact. Normal speech, normal gait. Normal sensory, motor exams. NIH 0 PSYCH: Normal mood, normal affect. SKIN: Warm, Dry, normal turgor, no rashes or lesions noted. Course - Re-evaluation Re-evalutation: Laboratory 11/17/17 11/17/17 11/17/17 10:53 10:53 12:42 WBC 13.0 H RBC 5.14 Hgb 16.2 H Hct 46.7 MCV 91 MCH 31.5 MCHC 34.6 RDW 13.9 Plt Count 289 Seg Neutrophils % 69.8 Lymphocytes % 21.1 Monocytes % 8.6 Eosinophils % 0.3 Basophils % 0.2 Absolute Neutrophils 9.0 H Absolute Lymphocytes 2.7 Absolute Monocytes 1.1 Absolute Eosinophils 0.0 Absolute Basophils 0.0 Sodium 144.8 Potassium 4.4 Chloride 104 Carbon Dioxide 27 Anion Gap 14 BUN 16 Creatinine 0.76 Est GFR ( Amer) > 60 Est GFR (Non-Af Amer) > 60 Glucose 103 Calcium 10.5 H Total Bilirubin 0.3 Direct Bilirubin 0.3 Neonat Total Bilirubin Not Reportable Neonat Direct Bilirubin Not Reportable Neonat Indirect Bili Not Reportable AST 24 ALT 31 Alkaline Phosphatase 71 Total Protein 8.0 Albumin 4.9 Lipase 94.6 Urine Color YELLOW Urine Appearance CLOUDY Urine pH 5.0 Ur Specific [place] 1.028 Urine Protein NEGATIVE Urine Glucose (UA) NEGATIVE Urine Ketones NEGATIVE Urine Blood SMALL H Urine Nitrite NEGATIVE Urine Bilirubin NEGATIVE Urine Urobilinogen NEGATIVE Ur Leukocyte Esterase NEGATIVE Urine WBC (Auto) 3 Urine RBC (Auto) 29 U Hyaline Cast (Auto) 9 Urine Bacteria (Auto) TRACE Squamous Epi Cells Auto 2 Calcium Oxalate Cr Auto MODERATE Urine Mucus (Auto) MANY Urine Ascorbic Acid [address] 11/17/17 11:47 IMPRESSION: NORMAL BRAIN CT WITHOUT CONTRAST. EVIDENCE OF ACUTE STROKE: NO. 11/17/17 12:32 47 y.o female with a PMHx of migraines, asthma, seasonal allergies and recent bladder surgery on 11/14/17. Patient presents to the ED with chest tightness, [place] , sinus pain that she describes as pressure of onset 2 weeks ago. Pt reports that she originally thought her sx were due pollen allergies. She states that she saw her doctor and was prescribed azithromycin and prednisone which did help to relieve the headache but as soon as the prednisone was completed it returned. Patient does have a history of multiple sinus surgeries. Vital signs stable upon arrival. Patient does not appear toxic or dehydrated. She is in no acute distress. Exam is significant for tenderness along the frontal and maxillary sinuses. She has a normal neurologic exam, normal funduscopic exam. Patient received IV fluids, Compazine, Benadryl, Solu-Medrol, Ativan and IV fluids. 11/17/17 13:34 On reevaluation patient states her headache has improved. She is requesting discharge home. Patient advised to follow-up with her ENT physician. No additional medications provided. Patient has been abdominal pain-free since my exam. She is tolerating fluids. After performing a Medical Screening Examination, I estimate there is LOW risk for ACUTE GLAUCOMA, TEMPORAL ARTERITIS, MENINGITIS, INCRANIAL HEMORRHAGE, or ISCHEMIC STROKE thus I consider the discharge disposition reasonable. I have reevaluated this patient multiple times and no significant life threatening changes are noted. The patient and I have discussed the diagnosis and risks, and we agree with discharging home with close follow-up with the understanding that symptoms and presentations can change. We also discussed returning to the Emergency Department immediately if new or worsening symptoms occur. We have discussed the symptoms which are most concerning (e.g., changing or worsening symptoms, new numbness or weakness, vomiting, fever) that necessitate immediate return. 11/17/17 13:35 11/17/17 15:07 - Vital Signs Vital signs: Temp Pulse Resp BP Pulse Ox 98.6 F 85 16 118/74 100 11/17/17 13:47 11/17/17 13:47 11/17/17 13:47 11/17/17 13:47 11/17/17 13:47 - Laboratory Result Diagrams: 11/17/17 10:53 11/17/17 10:53 Laboratory results interpreted by me: 11/17/17 11/17/17 11/17/17 10:53 10:53 12:42 WBC 13.0 H Hgb 16.2 H Absolute Neutrophils 9.0 H Calcium 10.5 H Urine Blood SMALL H Urine Ascorbic Acid 40 H - Diagnostic Test Radiology reviewed: Image reviewed, Reports reviewed Discharge - Discharge Clinical Impression: Headache Qualifiers: Headache type: unspecified Headache chronicity pattern: episodic headache Intractability: not intractable Qualified Code(s): R51 - Headache Abdominal pain Qualifiers: Abdominal location: epigastric Qualified Code(s): R10.13 - Epigastric pain Condition: Good Disposition: HOME, SELF-CARE Instructions: Antinausea Medication ([facility]), Headache ([facility]), Sinusitis ([facility]), Toradol Injection ([facility]) Additional Instructions: Follow-up with your ENT physician as soon as possible. Your CAT scan today was normal. Referrals: EZIO GARRIDO MD [Primary Care Provider] - Follow up in 3-5 days
--- NOTE | 2017-11-17 12:47 | RADIOLOGY REPORT (SQ) ---
EXAM DESCRIPTION: CT HEAD WITHOUT COMPLETED DATE/TIME: 11/17/2017 12:36 pm REASON FOR STUDY: headache COMPARISON: 08/27/2016 TECHNIQUE: Axial images acquired through the brain without intravenous contrast. Images reviewed wi th bone, brain and subdural windows. Images stored on PACS. All CT scanners at this facility use dose modulation, iterative reconstruction, and/or weight based d osing when appropriate to reduce radiation dose to as low as reasonably achievable (ALARA). [facility]: Dose Right [facility]: CareDose [facility]: Dose Right [facility]: Teradose 4D [facility]: Smart FOCUS Trainr RADIATION DOSE: CT Rad equipment meets quality standard of care and radiation dose reduction techniq ues were employed. CTDIvol: 53.2 mGy. DLP: 1070 mGy-cm. mGy. LIMITATIONS: None. FINDINGS: VENTRICLES: Normal size and contour. CEREBRUM: No masses. No hemorrhage. No midline shift. No evidence for acute infarction. Normal gra y/white matter differentiation. No areas of low density in the white matter. CEREBELLUM: No masses. No hemorrhage. No alteration of density. No evidence for acute infarction. EXTRAAXIAL SPACES: No fluid collections. No masses. ORBITS AND GLOBE: No intra- or extraconal masses. Normal contour of globe without masses. CALVARIUM: No fracture. PARANASAL SINUSES: No fluid or mucosal thickening. SOFT TISSUES: No mass or hematoma. OTHER: No other significant finding. IMPRESSION: NORMAL BRAIN CT WITHOUT CONTRAST. EVIDENCE OF ACUTE STROKE: NO. COMMENT: Quality ID # [id number]: Final reports with documentation of one or more dose reduction techniques (e.g., Automated exposure control, adjustment of the mA and/or kV according to patient size, use of iterative reconstruction technique) TECHNICAL DOCUMENTATION: JOB ID: [id number] [employer]- All Rights Reserved Reading location - IP/workstation name: [email or web address]
[2017-11-17 13:44] LABS: APPEARANCE,URINE CLOUDY; BILIRUBIN,URINE NEGATIVE (NEGATIVE); CALCIUM OXALATE CRYSTALS,URINE MODERATE /HPF; COLOR,URINE YELLOW; GLUCOSE, URINE NEGATIVE (NEGATIVE); KETONES,URINE NEGATIVE (NEGATIVE); LEUKOCYTE ESTERASE,URINE NEGATIVE (NEGATIVE); NITRITE,URINE NEGATIVE (NEGATIVE); PROTEIN,URINE NEGATIVE (NEGATIVE); URINE SPECIFIC GRAVITY 1.028; UROBILINOGEN,URINE NEGATIVE mg/dL (<2.0)
[2017-11-17 13:49] VITALS: BP 118/74
== END 2017-11-17 13:49 | disposition home or self-care (01) ==
LOC: ER 10:23
DX: R51 Headache (principal); R10.13 Epigastric pain; R07.9 Chest pain, unspecified; R11.2 Nausea with vomiting, unspecified; H53.149 Visual discomfort, unspecified; J45.909 Unspecified asthma, uncomplicated
CPT/HCPCS: 99284; 96361; 96374; 96375; 36415; 83690; 85025; 80053; 81001; 70450; J1200; J1885; J2930; J0780; J7030

== ENCOUNTER 2018-04-27 16:12 | Emergency (ER) | payer OTHER ==
[2018-04-27 16:17] VITALS: BP 127/86
--- NOTE | 2018-04-27 16:49 | ER Document Report ---
ED Headache - General Chief Complaint: Headache Stated Complaint: HEADACHE Time Seen by Provider: 04/27/18 16:39 Mode of Arrival: Ambulatory Notes: Chief complaint: Headache History of complain:( obtained from----patient) 48 years old female with a history of chronic headache and sinusitis was having headache for the last 7 days, was treated with Levaquin without any improvement. She also get Botox injections to the neck. Denies any focal weakness numbness tingling sensation. Denies any fever chills or other constitutional symptoms. Onset: Gradual Duration: Last few days Severity: Moderate to severe Quality: Sharp Context: Possible neck sprain Exacerbating factor and relieving factors: Change of position REVIEW OF SYSTEMS: CONSTITUTIONAL : Denies fever, chills, or sweats. Denies recent illness. EENT: Denies eye, ear, throat, or mouth pain or symptoms. Denies nasal or sinus congestion or discharge. Denies throat, tongue, or mouth swelling or difficulty swallowing. CARDIOVASCULAR: Denies chest pain. Denies palpitations or racing or irregular heart beat. Denies ankle edema. RESPIRATORY: Denies cough, cold, or chest congestion. Denies shortness of breath, difficulty breathing, or wheezing. GASTROINTESTINAL: Denies distention. Denies nausea, vomiting, or diarrhea. Denies blood in vomitus, stools, or per rectum. Denies black, tarry stools. Denies constipation. GENITOURINARY: Denies difficulty urinating, painful urination, burning, frequency, blood in urine, or discharge. FEMALE GENITOURINARY: Denies vaginal bleeding, heavy or abnormal periods, irregular periods. Denies vaginal discharge or odor. MUSCULOSKELETAL: Denies back or neck pain or stiffness. Denies joint pain or swelling. SKIN: Denies rash, lesions or sores. HEMATOLOGIC : Denies easy bruising or bleeding. LYMPHATIC: Denies swollen, enlarged glands. NEUROLOGICAL: Denies confusion or altered mental status. Denies passing out or loss of consciousness. Denies dizziness or lightheadedness. Denies headache. Denies weakness or paralysis or loss of use of either side. Denies problems with gait or speech. Denies sensory loss, numbness, or tingling. Denies seizures. PSYCHIATRIC: Denies anxiety or stress. Denies depression, suicidal ideation, or homicidal ideation. ALL OTHER SYSTEMS REVIEWED AND NEGATIVE. PHYSICAL EXAMINATION: GENERAL: Well-appearing, well-nourished and in no acute distress. HEAD: Atraumatic, normocephalic. EYES: Pupils equal round and reactive to light, extraocular movements intact, conjunctiva are normal. ENT: Nares patent, oropharynx clear without exudates. Moist mucous membranes. NECK: Normal range of motion, supple without lymphadenopathy Sharp tenderness were noted over the paraspinal muscles of the neck particularly at the insertion LUNGS: Breath sounds clear to auscultation bilaterally and equal. No wheezes rales or rhonchi. HEART: Regular rate and rhythm without murmurs ABDOMEN: Soft, nontender, nondistended abdomen. No guarding, no rebound. No masses appreciated. Examination of genitals-deferred Musculoskeletal: Normal range of motion, no pitting or edema. No cyanosis. NEUROLOGICAL: Cranial nerves grossly intact. Normal speech, normal gait. Normal sensory, motor exams PSYCH: Normal mood, normal affect. SKIN: Warm, Dry, normal turgor, no rashes or lesions noted. Dictation was performed using [employer] voice recognition software TRAVEL OUTSIDE OF THE [place] IN LAST 30 DAYS: No - HPI Notes: Dictated - Related Data Allergies/Adverse Reactions: nitrofurantoin [From Macrobid] Allergy (Intermediate, Verified 04/27/18 16:13) liver enlargement nitrofurantoin macrocrystalline [From Macrobid] Allergy (Intermediate, Verified 04/27/18 16:13) liver enlargement Past Medical History - Social History Smoking Status: Never Smoker Chew tobacco use (# tins/day): No Frequency of alcohol use: None Drug Abuse: None Lives with: Family Family History: Arthritis, CAD, CVA, DM, Hyperlipidemia, Hypertension Patient has suicidal ideation: No Patient has homicidal ideation: No - Past Medical History Cardiac Medical History: Reports: Hx Atrial Fibrillation, Hx Hypercholesterolemia Denies: Hx Heart Attack, Hx Hypertension Pulmonary Medical History: Reports: Hx Asthma, Hx Pneumonia Denies: Hx Bronchitis, Hx COPD Neurological Medical History: Denies: Hx Seizures Renal/ Medical History: Reports: Hx Kidney Stones, Hx Ovarian Cysts. Denies: Hx Peritoneal Dialysis GI Medical History: Reports: Hx Gastroesophageal Reflux Disease, Hx Colonoscopy , Hx Endoscopy Musculoskeletal Medical History: Denies Hx Arthritis, Reports Hx Musculoskeletal Trauma Psychiatric Medical History: Denies: Hx Depression Traumatic Medical History: Reports: Hx Fractures Past Surgical History: Reports: Hx Appendectomy, Hx Nose Surgery - sinus sx x 5 , Hx Orthopedic Surgery - bunion, Hx Tonsillectomy, Hx Tubal Ligation. Denies: Hx Hysterectomy - Immunizations Hx Diphtheria, Pertussis, Tetanus Vaccination: No Review of Systems - Review of Systems Notes: Dictated Physical Exam - Vital signs Vitals: Temp Pulse Resp BP Pulse Ox 97.4 F 97 18 127/86 H 99 04/27/18 16:15 04/27/18 16:15 04/27/18 16:15 04/27/18 16:15 04/27/18 16:15 - Notes Notes: Dictated Course - Re-evaluation Re-evalutation: 04/27/18 16:47 Muscle guarding of the neck relieved her pain - Vital Signs Vital signs: Temp Pulse Resp BP Pulse Ox 97.4 F 97 18 127/86 H 99 04/27/18 16:15 04/27/18 16:15 04/27/18 16:15 04/27/18 16:15 04/27/18 16:15 Discharge - Discharge Clinical Impression: Acute cervical sprain Qualifiers: Encounter type: initial encounter Qualified Code(s): S13.9XXA - Sprain of joints and ligaments of unspecified parts of neck, initial encounter Headache Qualifiers: Headache type: tension-type Headache chronicity pattern: episodic headache Intractability: not intractable Qualified Code(s): G44.219 - Episodic tension- type headache, not intractable Condition: Fair Disposition: HOME, SELF-CARE Instructions: Headache ([facility]) Prescriptions: Ketorolac Tromethamine [Toradol 10 mg Tablet] 10 mg PO Q6HP PRN #14 tablet PRN Reason: Diazepam [Valium 2 mg Tablet] 2 mg PO TID #20 tablet Prednisone 20 mg PO DAILY #7 tablet Referrals: EZIO GARRIDO MD [Primary Care Provider] - Follow up as needed
== END 2018-04-27 16:54 | disposition home or self-care (01) ==
LOC: ER 16:12
DX: S13.9XXA Sprain of joints and ligaments of unspecified parts of neck, initial encounter (principal); X58.XXXA Exposure to other specified factors, initial encounter; G44.219 Episodic tension-type headache, not intractable; J45.909 Unspecified asthma, uncomplicated; Z88.1 Allergy status to other antibiotic agents
CPT/HCPCS: 99283

== ENCOUNTER 2018-07-26 22:41 | Emergency (ER) | payer OTHER ==
[2018-07-26] MEDS ORDERED: ONDANSETRON HCL INJ/PF 4 MG/2 ML SDV IV ONE (23:36)
[2018-07-26] MEDS ORDERED: NORMAL SALINE 1000 ML 1,000 ML IV ONE (23:36)
[2018-07-27] MEDS ORDERED: PROMETHAZINE HCL INJ 25 MG/1 ML VIAL IV ONE (00:33)
[2018-07-27] MEDS ORDERED: NORMAL SALINE 1000 ML 1,000 ML IV ONE (00:37)
--- NOTE | 2018-07-27 00:37 | ER Document Report ---
ED General - General Chief Complaint: Vomiting Stated Complaint: VOMITING Time Seen by Provider: 07/27/18 00:27 TRAVEL OUTSIDE OF THE [place] IN LAST 30 DAYS: No - HPI Notes: Patient is a 48-year-old female that presents to the emergency department for chief complaint of vomiting. Patient reports she started vomiting at 5 PM this evening. She states she has not had any relief of her vomiting after taking Zofran. She took Zofran at noon and then again at 6 PM. She denies any abdominal pain, fevers and diarrhea. Patient states she started Saxenda today for the first time and believes that this may be a side effect of that medication. She also was seen at [facility] this morning by urology and had an injection in her bladder to help with her urinary incontinence. She states she has on Keflex for the next 3 days because of that procedure. Past Medical History: Common variable immunodeficiency Past Surgical History: Bladder surgery, sinus surgery, appendectomy, tubal ligation Social History: Denies drugs alcohol and tobacco Family History: Reviewed and noncontributory for presenting illness Allergies: Reviewed, see documented allergy list. REVIEW OF SYSTEMS: CONSTITUTIONAL : No fever No chills No diaphoresis No recent illness EENT: No vision changes No congestion No sore throat CARDIOVASCULAR: No chest pain No palpitations RESPIRATORY: No shortness of breath No cough No difficulty breathing GASTROINTESTINAL: No abdominal pain nausea vomiting No diarrhea GENITOURINARY: No dysuria No hematuria No difficulty urinating MUSCULOSKELETAL: No back pain No leg pain No arm pain SKIN: No rashes No lesions LYMPHATIC: No swollen, enlarged glands. NEUROLOGICAL: No lightheadedness No headache No weakness No paresthesias PSYCHIATRIC: No anxiety No depression PHYSICAL EXAMINATION: Vital signs reviewed, nursing noted reviewed. GENERAL: Well-appearing, well-nourished and in no acute distress. HEAD: Atraumatic, normocephalic. EYES: Eyes appear normal, extraocular movements intact, sclera anicteric, conjunctiva are normal. ENT: nares patent, oropharynx clear without exudates. Mildly dry mucous membranes. NECK: Normal range of motion, supple without lymphadenopathy LUNGS: Breath sounds clear to auscultation bilaterally and equal. No wheezes rales or rhonchi. HEART: Tachycardic and regular rhythm without murmurs ABDOMEN: Soft, nontender, normoactive bowel sounds. No rebound, guarding, or rigidity. No masses appreciated. EXTREMITIES: Nontender, good range of motion, no pitting or edema. NEUROLOGICAL: No focal neurological deficits. Moves all extremities spontaneously Motor and sensory grossly intact on exam. PSYCH: Normal mood, normal affect. SKIN: Warm, Dry, normal turgor, no rashes or lesions noted on exposed skin - Related Data Allergies/Adverse Reactions: nitrofurantoin [From Macrobid] Allergy (Intermediate, Verified 04/27/18 16:13) liver enlargement nitrofurantoin macrocrystalline [From Macrobid] Allergy (Intermediate, Verified 04/27/18 16:13) liver enlargement Past Medical History - Social History Smoking Status: Never Smoker Family History: Arthritis, CAD, CVA, DM, Hyperlipidemia, Hypertension - Past Medical History Cardiac Medical History: Reports: Hx Atrial Fibrillation, Hx Hypercholesterolemia Denies: Hx Heart Attack, Hx Hypertension Pulmonary Medical History: Reports: Hx Asthma, Hx Pneumonia Denies: Hx Bronchitis, Hx COPD Neurological Medical History: Denies: Hx Seizures Renal/ Medical History: Reports: Hx Kidney Stones, Hx Ovarian Cysts. Denies: Hx Peritoneal Dialysis GI Medical History: Reports: Hx Gastroesophageal Reflux Disease, Hx Colonoscopy, Hx Endoscopy Musculoskeletal Medical History: Denies Hx Arthritis, Reports Hx Musculoskeletal Trauma Psychiatric Medical History: Denies: Hx Depression Traumatic Medical History: Reports: Hx Fractures Past Surgical History: Reports: Hx Appendectomy, Hx Nose Surgery - sinus sx x 5, Hx Orthopedic Surgery - bunion, Hx Tonsillectomy, Hx Tubal Ligation. Denies: Hx Hysterectomy - Immunizations Hx Diphtheria, Pertussis, Tetanus Vaccination: No Physical Exam - Vital signs Vitals: Temp Pulse Resp BP Pulse Ox 97.4 F 113 H 16 127/77 H 99 07/26/18 22:42 07/26/18 22:42 07/26/18 22:42 07/26/18 22:42 07/26/18 22:42 Course - Re-evaluation Re-evalutation: 07/27/18 00:36 Vitals reviewed. Nursing notes reviewed. Patient has had multiple episodes of emesis in the emergency room. She has dry mucous membranes and a mild tachycardia. She will be given IV fluids and antiemetics. Patient is currently on Keflex and had recent instrumentation, urinalysis is not indicated since she is being treated and followed closely by urology already. She has no new urinary complaints since her procedure this morning. 07/27/18 02:31 Patient's lab work is unremarkable. After Phenergan she is feeling improvement. Patient's abdomen is soft and nontender, I do not feel she is having any acute intra-abdominal process requiring further imaging. Patients nausea may be a side effect of her recent new medication or procedure. She will continue taking the Keflex as prescribed by urology. She will follow with her primary care doctor for further medication recommendations. She will be given a prescription for Phenergan at home. She is stable at discharge. Laboratory 07/27/18 07/27/18 02:00 02:00 WBC 8.3 RBC 4.74 Hgb 15.3 Hct 43.5 MCV 92 MCH 32.3 MCHC 35.2 RDW 13.9 Plt Count 254 Seg Neutrophils % 73.9 Lymphocytes % 16.6 Monocytes % 8.5 Eosinophils % 0.5 Basophils % 0.5 Absolute Neutrophils 6.2 Absolute Lymphocytes 1.4 Absolute Monocytes 0.7 Absolute Eosinophils 0.0 Absolute Basophils 0.0 Sodium 139.6 Potassium 4.3 Chloride 103 Carbon Dioxide 26 Anion Gap 11 BUN 12 Creatinine 0.79 Est GFR ( Amer) > 60 Est GFR (Non-Af Amer) > 60 Glucose 83 Calcium 9.8 Total Bilirubin 0.7 Direct Bilirubin 0.2 Neonat Total Bilirubin Not Reportable Neonat Direct Bilirubin Not Reportable Neonat Indirect Bili Not Reportable AST 26 ALT 30 Alkaline Phosphatase 88 Total Protein 7.6 Albumin 4.7 Lipase 184.2 - Vital Signs Vital signs: Temp Pulse Resp BP Pulse Ox 97.4 F 113 H 16 127/77 H 99 07/26/18 22:42 07/26/18 22:42 07/26/18 22:42 07/26/18 22:42 07/26/18 22:42 - Laboratory Result Diagrams: 07/27/18 02:00 07/27/18 02:00 Discharge - Discharge Clinical Impression: Dehydration Vomiting Qualifiers: Vomiting type: unspecified Vomiting Intractability: non-intractable Nausea presence: with nausea Qualified Code(s): R11.2 - Nausea with vomiting, un specified Condition: Stable Disposition: HOME, SELF-CARE Instructions: Vomiting ([facility]) Additional Instructions: Please return to the emergency department if you have any worsening, or concern of your symptoms. Please return to the emergency department if you develop chest pain, difficulty breathing, severe abdominal pain, or ongoing vomiting. Please follow-up with your primary care physician in 2-3 days and any other recommended physicians. If prescribed, take all medications as directed. If you have any questions or concerns do not hesitate to return the emergency department for evaluation. Prescriptions: Promethazine HCl [Phenergan 25 mg Tablet] 1 tab PO Q6H PRN #15 tablet PRN Reason: Referrals: EZIO GARRIDO MD [Primary Care Provider] - Follow up in 3-5 days
[2018-07-27 02:12] LABS: ABSOLUTE LYMPHOCYTES (AUTO) 1.4 10^3/uL (0.5-4.7); ABSOLUTE MONOCYTES (AUTO) 0.7 10^3/uL (0.1-1.4); ABSOLUTE NEUT (AUTO) 6.2 10^3/uL (1.7-8.2); BASOPHILS % (AUTO) 0.5 % (0-2); EOSINOPHILS % (AUTO) 0.5 % (0-6); HEMATOCRIT 43.5 % (36.0-47.0); HEMOGLOBIN 15.3 g/dL (12.0-15.5); LYMPHOCYTES % (AUTO) 16.6 % (13-45); MEAN CORPUSCULAR HEMOGLOBIN 32.3 pg (27.0-33.4); MEAN CORPUSCULAR HGB CONC 35.2 g/dL (32.0-36.0); MEAN CORPUSCULAR VOLUME 92 fl (80-97); MONOCYTES % (AUTO) 8.5 % (3-13); PLATELET COUNT 254 10^3/uL (150-450); RED BLOOD COUNT 4.74 10^6/uL (3.72-5.28); RED CELL DISTRIBUTION WIDTH 13.9 % (11.5-14.0); SEGMENTED NEUTROPHILS % (AUTO) 73.9 % (42-78); TOTAL CELLS COUNTED % (AUTO) 100 %; WHITE BLOOD COUNT 8.3 10^3/uL (4.0-10.5)
[2018-07-27 02:24] LABS: ALANINE AMINOTRANSFERASE 30 U/L (9-52); ALBUMIN 4.7 g/dL (3.5-5.0); ALKALINE PHOSPHATASE 88 U/L (38-126); ANION GAP 11 (5-19); ASPARTATE AMINO TRANSFERASE 26 U/L (14-36); BILIRUBIN,DIRECT 0.2 mg/dL (0.0-0.4); BILIRUBIN,TOTAL 0.7 mg/dL (0.2-1.3); BLOOD UREA NITROGEN 12 mg/dL (7-20); CALCIUM 9.8 mg/dL (8.4-10.2); CARBON DIOXIDE 26 mmol/L (22-30); CHLORIDE 103 mmol/L (98-107); GLUCOSE 83 mg/dL (75-110); LIPASE 184.2 U/L (23-300); POTASSIUM 4.3 mmol/L (3.6-5.0); SODIUM 139.6 mmol/L (137-145); TOTAL PROTEIN 7.6 g/dL (6.3-8.2)
[2018-07-27 04:15] VITALS: BP 123/67
== END 2018-07-27 03:50 | disposition home or self-care (01) ==
LOC: ER 22:41
DX: E86.0 Dehydration (principal); R11.2 Nausea with vomiting, unspecified; I48.91 Unspecified atrial fibrillation; E78.00 Pure hypercholesterolemia, unspecified
CPT/HCPCS: 99284; 96361; 96374; 36415; 83690; 85025; 80053; J2550; J7030

== ENCOUNTER 2018-07-27 16:37 | Emergency (ER) | payer OTHER ==
[2018-07-27] MEDS ORDERED: RINGERS SOLUTION,LACTATED 1,000 ML IV ONE (17:56)
[2018-07-27] MEDS ORDERED: PROMETHAZINE HCL INJ 25 MG/1 ML VIAL IV ONE (17:57)
--- NOTE | 2018-07-27 17:59 | ER Document Report ---
ED Medical Screen (RME) - General Chief Complaint: Nausea/Vomiting Stated Complaint: VOMITING Time Seen by Provider: 07/27/18 17:45 Notes: Patient is a 48-year-old female that presents to the emergency department for chief complaint of nausea, vomiting, mild epigastric pain. Patient states that this started yesterday after she had a procedure at [place], for stress incontinence, she states she also started Saxenda for weight loss yesterday as well for the first time. She has had associated epigastric pressure. She was seen in the ED last night, was treated for her symptoms of nausea and vomiting, was feeling better, and was discharged home on Phenergan, but then started having the vomiting again shortly after leaving the ED so she came back today. ROS: Other than noted above, the 12 point review of systems was reviewed with the patient and were negative, all pertinent findings are included in the HPI. PHYSICAL EXAMINATION: Vital signs reviewed. GENERAL: Patient appears uncomfortable, but nontoxic appearing HEAD: Atraumatic, normocephalic. EYES: Pupils equal round extraocular movements intact, conjunctiva are normal. ENT: Nares patent NECK: Normal range of motion CV: Heart regular rate and rhythm LUNGS: No respiratory distress Musculoskeletal: Normal range of motion NEUROLOGICAL: Normal speech PSYCH: Normal mood, normal affect. MDM: Patient seen and examined for rapid initial assessment. Vital signs reviewed. A comprehensive ED assessment and evaluation of the patient, analysis of test results and completion of the medical decision making process will be conducted by additional ED providers. *Note is created using voice recognition software and may contain spelling, syntax or grammatical errors. TRAVEL OUTSIDE OF THE [place] IN LAST 30 DAYS: No - Related Data Allergies/Adverse Reactions: nitrofurantoin [From Macrobid] Allergy (Intermediate, Verified 07/27/18 16:40) liver enlargement nitrofurantoin macrocrystalline [From Macrobid] Allergy (Intermediate, Verified 07/27/18 16:40) liver enlargement Past Medical History - Social History Chew tobacco use (# tins/day): No Frequency of alcohol use: None Drug Abuse: None - Past Medical History Cardiac Medical History: Reports: Hx Atrial Fibrillation, Hx Hypercholesterolemia Denies: Hx Heart Attack, Hx Hypertension Pulmonary Medical History: Reports: Hx Asthma, Hx Pneumonia Denies: Hx Bronchitis, Hx COPD Neurological Medical History: Denies: Hx Seizures Renal/ Medical History: Reports: Hx Kidney Stones, Hx Ovarian Cysts. Denies: Hx Peritoneal Dialysis GI Medical History: Reports: Hx Gastroesophageal Reflux Disease, Hx Colonoscopy, Hx Endoscopy Musculoskeltal Medical History: Denies Hx Arthritis, Reports Hx Musculoskeletal Trauma Psychiatric Medical History: Denies: Hx Depression Traumatic Medical History: Reports: Hx Fractures Past Surgical History: Reports: Hx Appendectomy, Hx Nose Surgery - sinus sx x 5, Hx Orthopedic Surgery - bunion, Hx Tonsillectomy, Hx Tubal Ligation. Denies: Hx Hysterectomy - Immunizations Hx Diphtheria, Pertussis, Tetanus Vaccination: No Physical Exam - Vital signs Vitals: Temp Pulse Resp BP Pulse Ox 97.8 F 113 H 18 137/83 H 100 07/27/18 16:44 07/27/18 16:44 07/27/18 16:44 07/27/18 16:44 07/27/18 16:44 Course - Vital Signs Vital signs: Temp Pulse Resp BP Pulse Ox 97.8 F 113 H 18 137/83 H 100 07/27/18 16:44 07/27/18 16:44 07/27/18 16:44 07/27/18 16:44 07/27/18 16:44 Doctor's Discharge - Discharge Referrals: EZIO GARRIDO MD [Primary Care Provider] - Follow up as needed
[2018-07-27 18:47] LABS: ABSOLUTE LYMPHOCYTES (AUTO) 1.3 10^3/uL (0.5-4.7); ABSOLUTE MONOCYTES (AUTO) 0.7 10^3/uL (0.1-1.4); ABSOLUTE NEUT (AUTO) 8.4 10^3/uL (1.7-8.2); BASOPHILS % (AUTO) 0.2 % (0-2); EOSINOPHILS % (AUTO) 0.2 % (0-6); HEMATOCRIT 46.2 % (36.0-47.0); HEMOGLOBIN 16.2 g/dL (12.0-15.5); LYMPHOCYTES % (AUTO) 12.8 % (13-45); MEAN CORPUSCULAR HEMOGLOBIN 32.2 pg (27.0-33.4); MEAN CORPUSCULAR HGB CONC 35.1 g/dL (32.0-36.0); MEAN CORPUSCULAR VOLUME 92 fl (80-97); MONOCYTES % (AUTO) 6.7 % (3-13); PLATELET COUNT 292 10^3/uL (150-450); RED BLOOD COUNT 5.03 10^6/uL (3.72-5.28); RED CELL DISTRIBUTION WIDTH 14.3 % (11.5-14.0); SEGMENTED NEUTROPHILS % (AUTO) 80.1 % (42-78); TOTAL CELLS COUNTED % (AUTO) 100 %; WHITE BLOOD COUNT 10.4 10^3/uL (4.0-10.5)
[2018-07-27 18:59] LABS: ALANINE AMINOTRANSFERASE 34 U/L (9-52); ALKALINE PHOSPHATASE 89 U/L (38-126); ANION GAP 13 (5-19); ASPARTATE AMINO TRANSFERASE 40 U/L (14-36); BILIRUBIN,DIRECT 0.4 mg/dL (0.0-0.4); BILIRUBIN,TOTAL 0.9 mg/dL (0.2-1.3); BLOOD UREA NITROGEN 15 mg/dL (7-20); CALCIUM 10.1 mg/dL (8.4-10.2); CARBON DIOXIDE 25 mmol/L (22-30); CHLORIDE 104 mmol/L (98-107); GLUCOSE 88 mg/dL (75-110); LIPASE 94.3 U/L (23-300); POTASSIUM 5.1 mmol/L (3.6-5.0); SODIUM 141.8 mmol/L (137-145); TOTAL PROTEIN 8.4 g/dL (6.3-8.2)
[2018-07-27 19:59] LABS: APPEARANCE,URINE SLIGHTLY-CLOUDY; BILIRUBIN,URINE NEGATIVE (NEGATIVE); GLUCOSE, URINE NEGATIVE (NEGATIVE); KETONES,URINE 80 mg/dL (NEGATIVE); LEUKOCYTE ESTERASE,URINE NEGATIVE (NEGATIVE); NITRITE,URINE NEGATIVE (NEGATIVE); PROTEIN,URINE 30 mg/dL (NEGATIVE); URINE SPECIFIC GRAVITY 1.024; UROBILINOGEN,URINE NEGATIVE mg/dL (<2.0)
[2018-07-27 20:00] LABS: COLOR,URINE YELLOW
--- NOTE | 2018-07-27 20:01 | ER Document Report ---
ED General - General Chief Complaint: Nausea/Vomiting Stated Complaint: VOMITING Time Seen by Provider: 07/27/18 17:45 Notes: 48-year-old female presents to the emergency department for nausea and vomiting that started yesterday. She was seen in the emergency department yesterday for the same symptoms. No new changes in her health other than seeing a weight loss specialist yesterday morning and being prescribed a Saxenda injection for which she took about 12:00. The symptoms started shortly after her injection after waking up from a nap. She was given IV fluids in the emergency department and discharged home with Phenergan. She did take 1 Phenergan pill without resolution. She currently denies dizziness, lightheadedness, shortness of breath, chest pain, diarrhea, or urinary symptoms. TRAVEL OUTSIDE OF THE [place] IN LAST 30 DAYS: No - HPI Patient complains to provider of: vomiting - Related Data Allergies/Adverse Reactions: nitrofurantoin [From Macrobid] Allergy (Intermediate, Verified 07/27/18 16:40) liver enlargement nitrofurantoin macrocrystalline [From Macrobid] Allergy (Intermediate, Verified 07/27/18 16:40) liver enlargement Past Medical History - General Information source: Patient - Social History Smoking Status: Never Smoker Chew tobacco use (# tins/day): No Frequency of alcohol use: None Drug Abuse: None Family History: Arthritis, CAD, CVA, DM, Hyperlipidemia, Hypertension Patient has suicidal ideation: No Patient has homicidal ideation: No - Past Medical History Cardiac Medical History: Reports: Hx Atrial Fibrillation, Hx Hypercholesterolemia Denies: Hx Heart Attack, Hx Hypertension Pulmonary Medical History: Reports: Hx Asthma, Hx Pneumonia Denies: Hx Bronchitis, Hx COPD Neurological Medical History: Denies: Hx Seizures Renal/ Medical History: Reports: Hx Kidney Stones, Hx Ovarian Cysts. Denies: Hx Peritoneal Dialysis GI Medical History: Reports: Hx Gastroesophageal Reflux Disease, Hx Colonoscopy, Hx Endoscopy Musculoskeletal Medical History: Denies Hx Arthritis, Reports Hx Musculoskeletal Trauma Psychiatric Medical History: Denies: Hx Depression Traumatic Medical History: Reports: Hx Fractures Past Surgical History: Reports: Hx Appendectomy, Hx Nose Surgery - sinus sx x 5, Hx Orthopedic Surgery - bunion, Hx Tonsillectomy, Hx Tubal Ligation. Denies: Hx Hysterectomy - Immunizations Hx Diphtheria, Pertussis, Tetanus Vaccination: No Review of Systems - Review of Systems Constitutional: See HPI EENT: See HPI Cardiovascular: See HPI Respiratory: See HPI Gastrointestinal: See HPI Genitourinary: See HPI Female Genitourinary: No symptoms reported Musculoskeletal: No symptoms reported Skin: No symptoms reported Hematologic/Lymphatic: No symptoms reported Neurological/Psychological: No symptoms reported Physical Exam - Vital signs Vitals: Temp Pulse Resp BP Pulse Ox 97.8 F 113 H 18 137/83 H 100 07/27/18 16:44 07/27/18 16:44 07/27/18 16:44 07/27/18 16:44 07/27/18 16:44 - Notes Notes: Reviewed vital signs and nursing note as charted by RN. CONSTITUTIONAL: Well-appearing, well-nourished, acting appropriately for age HEAD: Normocephalic, atraumatic, no swelling EYES: PERRL, Conjunctivae clear, no drainage, EOMI, no scleral icterus ENT: External ears without lesions, External auditory canal is patent, airway patent, mucous membranes pink and moist NECK: Supple, no cervical lymphadenopathy, no masses CARD: Regular rate and rhythm, no murmurs, no rubs, no gallops, capillary refill < 2 seconds, symmetric pulses RESP: The lungs are clear to auscultation bilaterally, no wheezing, no rales, no rhonchi. Respiratory rate and effort are normal, normal chest excursion. No respiratory distress, no retractions, no stridor, no nasal flaring, no accessory muscle use. ABD/GI: Normal bowel sounds, non-distended, soft, non-tender, no rebound, no guarding, no palpable organomegaly EXT: Normal ROM in all joints, non-tender to palpation, no effusions, no edema SKIN: Normal color for age and race, warm, dry, good turgor, no acute lesions noted NEURO: No facial asymmetry, moves all extremities equally, motor and sensory function intact Course - Re-evaluation Re-evalutation: 07/27/18 20:00 Pleasant 48-year-old female re-presents to the emergency department after being seen here last night for vomiting that started yesterday. She was recently prescribed Saxenda and took the injection yesterday which seems to be temporally related to her symptoms. She was given IV fluids in the emergency department and Phenergan and her symptoms improved last night, although when she left she vomited in the vehicle and has been vomiting since. She received 1 L of normal saline here and states feeling much better. It is unclear why she is having the symptoms but they could be related to the Saxenda as it is reported could cause nausea in up to 40% of patients and vomiting and up to 16% of patients.. She has had no recent sickness or been around any sick contacts. Because she is unable to hold anything down I will prescribe her Zofran dissolvable tabs. 07/27/18 20:02 - Vital Signs Vital signs: Temp Pulse Resp BP Pulse Ox 97.8 F 113 H 18 137/83 H 100 07/27/18 16:44 07/27/18 16:44 07/27/18 16:44 07/27/18 16:44 07/27/18 16:44 - Laboratory Result Diagrams: 07/27/18 18:22 07/27/18 18:22 Laboratory results interpreted by me: 07/27/18 07/27/18 07/27/18 18:22 18:22 19:27 Hgb 16.2 H RDW 14.3 H Seg Neutrophils % 80.1 H Lymphocytes % 12.8 L Absolute Neutrophils 8.4 H Potassium 5.1 H AST 40 H Total Protein 8.4 H Urine Protein 30 H Urine Ketones 80 H Urine Ascorbic Acid 40 H Discharge - Discharge Clinical Impression: Nausea Vomiting Qualifiers: Vomiting type: unspecified Vomiting Intractability: non-intractable Nausea presence: with nausea Qualified Code(s): R11.2 - Nausea with vomiting, unspecified Condition: Good Disposition: HOME, SELF-CARE Instructions: Vomiting ([facility]) Additional Instructions: You were seen in the emergency department this evening for vomiting. It is most likely related to the new medication you are taking called Saxenda as the incidence of nausea and vomiting and patient's is very high. We are sending you home with in alternative antinausea medication called Zofran. You can take this every 4 hours as needed for nausea. Please do not take it with Phenergan or any other type of antinausea medication. If you start to have symptoms of dehydration, continue to have intractable vomiting, or have profuse diarrhea please immediately return to the emergency department. Please call your doctor on Sunday morning to consider alternative therapy. Referrals: EZIO GARRIDO MD [Primary Care Provider] - Follow up as needed
[2018-07-27] MEDS ORDERED: ONDANSETRON 4 MG TAB.RAPDIS PO ONE ×2 (20:07→21:09)
[2018-07-28 03:59] VITALS: BP 118/78
== END 2018-07-27 21:13 | disposition home or self-care (01) ==
LOC: ER 16:37
DX: R11.2 Nausea with vomiting, unspecified (principal); J45.909 Unspecified asthma, uncomplicated
CPT/HCPCS: 99284; 96361; 96374; 36415; 83690; 85025; 80053; 81001; S0119; J2550; J7120

== ENCOUNTER 2018-10-23 12:26 | Emergency (ER) | payer OTHER ==
[2018-10-23 12:32] VITALS: BP 154/67
--- NOTE | 2018-10-23 13:18 | ER Document Report ---
ED General - General Chief Complaint: Cough Stated Complaint: COUGH,CONGESTION Time Seen by Provider: 10/23/18 12:53 Primary Care Provider: EZIO GARRIDO MD [Primary Care Provider] - Follow up in 3-5 days Notes: Patient is a 48-year-old female with history of combined variable immune deficiency that presents to the emergency department for chief complaint of cough, shortness of breath and wheezing. 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 She denies noting any fevers, chills, nausea, vomiting, chest pain, abdominal pain, dysuria hematuria. She is scheduled to see pulmonology this Sunday, but wanted to come to the emergency department to be evaluated prior to that. She does have albuterol she has been using at home as well as her nebulizer, without much relief of her symptoms. Past Medical History: CVID, asthma Past Surgical History: Sinus surgery, tonsillectomy Social History: Denies tobacco, alcohol or drug use Family History: Reviewed and noncontributory for presenting illness Allergies: Reviewed, see documented allergy list. REVIEW OF SYSTEMS: Other than noted above, the 12 point review of systems was reviewed with the patient and were negative, all pertinent findings are included in the HPI. PHYSICAL EXAMINATION: Vital signs reviewed, nursing noted reviewed. GENERAL: Well-appearing, well-nourished and in no acute distress. HEAD: Atraumatic, normocephalic. EYES: Eyes appear normal, extraocular movements intact, sclera anicteric, conjunctiva are normal. ENT: nares patent, oropharynx clear without exudates. Moist mucous membranes. NECK: Normal range of motion, supple without lymphadenopathy LUNGS: Wheezing noted throughout all lung anderson, no respiratory distress, or increased work of breathing HEART: Heart rate mildly tachycardic, regular rhythm, no audible murmur ABDOMEN: Soft, nontender, normoactive bowel sounds. No rebound, guarding, or rigidity. No masses appreciated. EXTREMITIES: Nontender, good range of motion, no pitting or edema. NEUROLOGICAL: No focal neurological deficits. Moves all extremities spontaneously Motor and sensory grossly intact on exam. PSYCH: Normal mood, normal affect. SKIN: Warm, Dry, normal turgor, no rashes or lesions noted on exposed skin TRAVEL OUTSIDE OF THE [place].S. IN LAST 30 DAYS: No - Related Data Allergies/Adverse Reactions: nitrofurantoin [From Macrobid] Allergy (Intermediate, Verified 10/23/18 12:45) liver enlargement nitrofurantoin macrocrystalline [From Macrobid] Allergy (Intermediate, Verified 10/23/18 12:45) liver enlargement Past Medical History - Social History Smoking Status: Never Smoker Frequency of alcohol use: None Drug Abuse: None Family History: Arthritis, CAD, CVA, DM, Hyperlipidemia, Hypertension Patient has suicidal ideation: No Patient has homicidal ideation: No - Past Medical History Cardiac Medical History: Reports: Hx Atrial Fibrillation, Hx Hypercholesterolemia Denies: Hx Heart Attack, Hx Hypertension Pulmonary Medical History: Reports: Hx Asthma, Hx Pneumonia Denies: Hx Bronchitis, Hx COPD Neurological Medical History: Denies: Hx Seizures Renal/ Medical History: Reports: Hx Kidney Stones, Hx Ovarian Cysts. Denies: Hx Peritoneal Dialysis GI Medical History: Reports: Hx Gastroesophageal Reflux Disease, Hx Colonoscopy, Hx Endoscopy Musculoskeletal Medical History: Denies Hx Arthritis, Reports Hx Musculoskeletal Trauma Psychiatric Medical History: Denies: Hx Depression Traumatic Medical History: Reports: Hx Fractures Past Surgical History: Reports: Hx Appendectomy, Hx Nose Surgery - sinus sx x 5, Hx Orthopedic Surgery - bunion, Hx Tonsillectomy, Hx Tubal Ligation. Denies: Hx Hysterectomy - Immunizations Hx Diphtheria, Pertussis, Tetanus Vaccination: No Physical Exam - Vital signs Vitals: Temp Pulse Resp BP Pulse Ox 97.4 F 109 H 22 H 154/67 H 100 10/23/18 12:31 10/23/18 12:31 10/23/18 12:31 10/23/18 12:31 10/23/18 12:31 Course - Re-evaluation Re-evalutation: Patient seen and examined vital signs reviewed. Patient was evaluated and treated as appropriate for the patient's presenting symptoms and complaint, with consideration of any critical or life threatening conditions that may be associated with their obtained history and exam as noted above. 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 Patient was agreeable to this plan of care, did not think she needed further workup, she is Aydin had extensive workup including chest x- rays recently, and been on 3 rounds of antibiotics without much improvement of her symptoms, I do not feel the patient needs any further antibiotics, she does not appear septic or toxic at this time. The patient was re-evaluated and was stable Evaluation was most consistent with bronchospasm, acute asthma exacerbation Plan of care was discussed with the patient at this point, after careful consideration I feel that that patient can be discharged from the emergency department, the patient was educated treatments and reasons to return to the emergency department based on their presumed diagnosis as noted above, they were advised to followup with a primary care physician in 2-3 days. Patient was ag reeable to plan of care. *Note is created using voice recognition software and may contain spelling, syntax or grammatical errors. - Vital Signs Vital signs: Temp Pulse Resp BP Pulse Ox 97.4 F 109 H 22 H 154/67 H 100 10/23/18 12:31 10/23/18 12:31 10/23/18 12:31 10/23/18 12:31 10/23/18 12:31 Discharge - Discharge Clinical Impression: Acute asthma exacerbation Qualifiers: Asthma severity: unspecified severity Asthma persistence: unspecified Qualified Code(s): J45.901 - Unspecified asthma with (acute) exacerbation Condition: Stable Disposition: HOME, SELF-CARE Instructions: Asthma ([facility]) Additional Instructions: Please take prednisone 40 mg daily, and continue taking this until further advised by pulmonology after your appointment on Sunday, please use the inhaled budesonide, twice daily with your nebulizer as well. If you develop fever, or difficulty breathing, chest pain, or worsening symptoms overall, he can always return to the emergency department to be reevaluated. Prescriptions: RX: Budesonide [Pulmicort] 0.5 mg IH BID #60 ampul.neb RX: Prednisone [Deltasone 10 mg Tablet] 40 mg PO DAILY #20 tablet Forms: Return to Work Referrals: EZIO GARRIDO MD [Primary Care Provider] - Follow up in 3-5 days
== END 2018-10-23 13:29 | disposition home or self-care (01) ==
LOC: ER 12:26
DX: J45.901 Unspecified asthma with (acute) exacerbation (principal); R05 Cough; R00.0 Tachycardia, unspecified; R06.02 Shortness of breath; Z20.828 Contact with and (suspected) exposure to other viral communicable diseases; Z79.899 Other long term (current) drug therapy; Z79.52 Long term (current) use of systemic steroids; Z88.1 Allergy status to other antibiotic agents; Z87.01 Personal history of pneumonia (recurrent)
CPT/HCPCS: 99283

== ENCOUNTER 2019-12-29 04:11 | Emergency (ER) | payer OTHER ==
--- NOTE | 2019-12-29 06:10 | RADIOLOGY REPORT (SQ) ---
EXAM DESCRIPTION: XR CHEST 1 VIEW COMPLETED DATE/TME: 12/29/2019 05:32 CLINICAL HISTORY: 49 years, Female, sob COMPARISON: 04/15/2016 chest NUMBER OF VIEWS: 1 TECHNIQUE: Portable chest LIMITATIONS: None. FINDINGS: Heart size is normal. Lungs are clear. No pneumothorax IMPRESSION: Negative chest copyright 2011 [employer]- All Rights Reserved
[2019-12-29 06:18] LABS: HEMATOCRIT 38.9 % (36.0-47.0); HEMOGLOBIN 13.6 g/dL (12.0-15.5); MEAN CORPUSCULAR HEMOGLOBIN 32.6 pg (27.0-33.4); MEAN CORPUSCULAR HGB CONC 34.9 g/dL (32.0-36.0); MEAN CORPUSCULAR VOLUME 93 fl (80-97); PLATELET COUNT 285 10^3/uL (150-450); RED BLOOD COUNT 4.17 10^6/uL (3.72-5.28); RED CELL DISTRIBUTION WIDTH 15.3 % (11.5-14.0); WHITE BLOOD COUNT 16.7 10^3/uL (4.0-10.5)
--- NOTE | 2019-12-29 06:22 | EKG REPORT ---
SEVERITY:- NORMAL ECG - SINUS RHYTHM : Confirmed by: Valentino London MD 29-Dec-2019 06:22:03
[2019-12-29 06:32] LABS: ALBUMIN 4.7 g/dL (3.5-5.0); ALKALINE PHOSPHATASE 71 U/L (38-126); ANION GAP 12 (5-19); ASPARTATE AMINO TRANSFERASE 18 U/L (14-36); BILIRUBIN,DIRECT 0.2 mg/dL (0.0-0.4); BILIRUBIN,TOTAL 0.4 mg/dL (0.2-1.3); BLOOD UREA NITROGEN 33 mg/dL (7-20); CALCIUM 9.9 mg/dL (8.4-10.2); CARBON DIOXIDE 24 mmol/L (22-30); CHLORIDE 106 mmol/L (98-107); CREATINE KINASE 41 U/L (30-135); GLUCOSE 115 mg/dL (75-110); POTASSIUM 4.7 mmol/L (3.6-5.0); TOTAL PROTEIN 7.5 g/dL (6.3-8.2)
[2019-12-29 06:44] LABS: CREATINE KINASE MB 1.16 ng/mL (<4.55); TROPONIN I < 0.012 ng/mL
[2019-12-29 06:56] LABS: ABSOLUTE LYMPHOCYTES# (MANUAL) 1.5 10^3/uL (0.5-4.7); BASOPHILS % (MANUAL) 0 % (0-2); EOSINOPHILS % (MANUAL) 0 % (0-6); LYMPHOCYTES % (MANUAL) 9 % (13-45); MONOCYTES % (MANUAL) 0 % (3-13); SEGMENTED NEUTROPHILS % (MAN) 91 % (42-78); TOTAL CELLS COUNTED 100
[2019-12-29 06:58] LABS: ANISOCYTOSIS SLIGHT; PLATELET COMMENT ADEQUATE
--- NOTE | 2019-12-29 07:13 | ER Document Report ---
ED Respiratory Problem - General TRAVEL OUTSIDE OF THE U.S. IN LAST 30 DAYS: No - Related Data Home Medications: Doxcycline. Prednisone. Mucinex. Rachelle. Cingular. Omeprazole. Atorvastatin. Lunesta <JESSICA HERNANDEZ - Last Filed: 12/29/19 07:39> - General Mode of Arrival: Ambulatory Information source: Patient <JAG LEDESMA - Last Filed: 12/29/19 10:17> - General Chief Complaint: Chest Tightness Stated Complaint: SHORTNESS OF BREATH Time Seen by Provider: 12/29/19 06:57 Primary Care Provider: EZIO GARRIDO MD [Primary Care Provider] - Follow up as needed Notes: CHIEF COMPLAINT: Multiple complaints HPI: 49-year-old female with history of chronic sinus problems as well as asthma issues for which she follows with ENT locally and at [place] presenting for continued problems with her sinuses. Has been having problems for 2 months. No fever. Has been on 5 different antibiotics and is on her second course of steroids, 40 mg daily over the last 6 days with another 6 days pending. Complains of continued facial pressure worse over the left frontal sinus as well as pressure in the ears. Has not had any definitive fever. Has had a cough but no shortness of breath that does not resolve with her albuterol inhaler. Patient complains of a bloating sensation in the upper abdomen. Denies d iarrhea. Reports anterior chest wall pain that is worse with palpation and movement states this is typical of the chronic inflammatory changes she gets with her disease process. ROS: See HPI - all other systems were reviewed and are otherwise negative Constitutional: no fever Eyes: no drainage, no blurred vision ENT: Positive runny nose, no sore throat, positive sinus pain Cardiovascular: Positive chest wall pain Resp: no SOB, no cough GI: no vomiting, no diarrhea, no abdominal pain : no dysuria Integumentary: no rash Allergy: no hives Musculoskeletal: no extremity pain or swelling Neurological: no numbness/tingling, no weakness MEDICATIONS: I agree with the patient medications as charted by the RN. ALLERGIES: I agree with the allergies as charted by the RN. PAST MEDICAL HISTORY/PAST SURGICAL HISTORY: Reviewed and agree as charted by RN. SOCIAL HISTORY: Reviewed and agree as charted by RN. FAMILY HISTORY: No significant familial comorbid conditions directly related to patient complaint EXAM: Reviewed vital signs as charted by RN. CONSTITUTIONAL: Alert and oriented and responds appropriately to questions. Well-appearing; well-nourished HEAD: Normocephalic; atraumatic EYES: PERRL; Conjunctivae clear, sclerae non-icteric ENT: normal nose; clear rhinorrhea; mild tenderness over the frontal and maxillary sinuses bilaterally without facial swelling or erythema moist mucous membranes; pharynx without lesions noted, no uvula edema or deviation, no tonsillar hypertrophy, phonation normal NECK: Supple without meningismus; non-tender; no cervical lymphadenopathy, no masses CARD: RRR; no murmurs, no clicks, no rubs, no gallops; symmetric distal pulses RESP: Normal chest excursion without splinting or tachypnea; breath sounds clear and equal bilaterally; no wheezes, no rhonchi, no rales, pulse oximetry 99% on room air not hypoxic. There is tenderness on palpation over the anterior chest wall ABD/GI: Normal bowel sounds; non-distended; soft, no focal tenderness on palpation of the abdomen very mild discomfort in the epigastric region on palpation, no rebound, no guarding; no palpable organomegaly or masses. BACK: The back appears normal and is non-tender to palpation, there is no CVA tenderness EXT: Normal ROM in all joints; non-tender to palpation; no cyanosis, no effusions, no edema SKIN: Normal color for age and race; warm; dry; good turgor; no acute lesions noted NEURO: Moves all extremities equally; Motor and sensory function intact PSYCH: The patient's mood and manner are appropriate. Grooming and personal hygiene are appropriate. MDM: 49-year-old female presenting for evaluation of multiple complaints that of been ongoing for 2 months. Patient has been on steroids chronically over the last 3 to 4 weeks. This is why she likely has a mild leukocytosis. She does not have focal abdominal pain suggesting cholecystitis likely has gastric irritation from long-term steroid use as well as the fact that she has been on 5 different antibiotics over the last few weeks. Patient has a mild serous otitis but does not have a visible otitis media. She has minimal tenderness over the sinuses that this is likely viral. She reports that she has had stenting of her sinuses multiple times at [place]. Patient has been awaiting follow-up with her ENT locally to get a sinus CT scheduled she has not had one in the last 4 years. Given this information will obtain a sinus CT to ensure no significant abnormalities, anticipate patient with likely discharge home to follow-up outpatient with her ENT for further evaluation (JESSICA HERNANDEZ) - Related Data Allergies/Adverse Reactions: nitrofurantoin [From Macrobid] Allergy (Intermediate, Verified 10/23/18 12:45) liver enlargement nitrofurantoin macrocrystalline [From Macrobid] Allergy (Intermediate, Verified 10/23/18 12:45) liver enlargement Past Medical History - Social History Smoking Status: Never Smoker Chew tobacco use (# tins/day): No Frequency of alcohol use: None Drug Abuse: None Family History: Arthritis, CAD, CVA, DM, Hyperlipidemia, Hypertension Patient has homicidal ideation: No - Past Medical History Cardiac Medical History: Reports: Hx Atrial Fibrillation, Hx Hype rcholesterolemia Denies: Hx Heart Attack, Hx Hypertension Pulmonary Medical History: Reports: Hx Asthma, Hx Pneumonia Denies: Hx Bronchitis, Hx COPD Neurological Medical History: Denies: Hx Seizures Renal/ Medical History: Reports: Hx Kidney Stones, Hx Ovarian Cysts. Denies: Hx Peritoneal Dialysis GI Medical History: Reports: Hx Gastroesophageal Reflux Disease, Hx Colonoscopy, Hx Endoscopy Musculoskeletal Medical History: Denies Hx Arthritis, Reports Hx Musculoskeletal Trauma Psychiatric Medical History: Denies: Hx Depression Traumatic Medical History: Reports: Hx Fractures Past Surgical History: Reports: Hx Appendectomy, Hx Nose Surgery - sinus sx x 5, Hx Orthopedic Surgery - bunion, Hx Tonsillectomy, Hx Tubal Ligation. Denies: Hx Hysterectomy - Immunizations Hx Diphtheria, Pertussis, Tetanus Vaccination: No <JESSICA HERNANDEZ - Last Filed: 12/29/19 07:39> Physical Exam - Vital signs Vitals: Temp 98.9 F 12/29/19 04:11 Course - Laboratory Result Diagrams: 12/29/19 06:00 12/29/19 06:00 <JESSICA HERNANDEZ - Last Filed: 12/29/19 07:39> - Laboratory Result Diagrams: 12/29/19 06:00 12/29/19 06:00 <JAG LEDESMA - Last Filed: 12/29/19 10:17> - Re-evaluation Re-evalutation: 12/29/19 07:39 Report will be given the oncoming shift to follow and disposition (JESSICA HERNANDEZ) 12/29/19 008:00 Report received from Jessica Hernandez PROCESS CONTROL TECH discussed pending CT results, labs and xray results. Plan for discharge home if CT negative 12/29/19 09:19 Discussed all findings with patient no acute process noted. Counseled to follow up out patient with her ENT as discussed. Continue current medications. Patient was given strict return to the emergency room guidelines. Return for any new or worsening symptoms. All questions were answered. Patient verbalized understanding and agrees with plan of care. (JAG LEDESMA) - Vital Signs Vital signs: Temp Pulse Resp BP Pulse Ox 98.0 F 98 19 132/87 H 98 12/29/19 09:41 12/29/19 09:35 12/29/19 09:35 12/29/19 09:35 12/29/19 09:35 - Laboratory Laboratory results interpreted by me: 12/29/19 12/29/19 06:00 06:00 WBC 16.7 H RDW 15.3 H Seg Neuts % (Manual) 91 H Lymphocytes % (Manual) 9 L Monocytes % (Manual) 0 L Abs Neuts (Manual) 15.2 H Abs Monocytes (Manual) 0.0 L BUN 33 H Glucose 115 H Discharge <JESSICA HERNANDEZ - Last Filed: 12/29/19 07:39> <JAG LEDESMA - Last Filed: 12/29/19 10:17> - Discharge Clinical Impression: Viral illness Condition: Stable Disposition: HOME, SELF-CARE Instructions: High Blood Pressure ([facility]), Viral Syndrome ([facility]) Additional Instructions: Continue your current home medications. Follow-up with your ENT as scheduled. Return for any new or worsening symptoms. Forms: Elevated Blood Pressure, Return to Work Referrals: EZIO GARRIDO MD [Primary Care Provider] - Follow up as needed
--- NOTE | 2019-12-29 08:43 | RADIOLOGY REPORT (SQ) ---
EXAM DESCRIPTION: CT FACIAL AREA WITHOUT IMAGES COMPLETED DATE/TIME: 12/29/2019 7:51 am REASON FOR STUDY: chronic sinus problems COMPARISON: None. TECHNIQUE: Noncontrasted images through the facial bones and orbits windowed for bone and soft tissu e. Additional coronal and sagittal reconstructed images reviewed. All images stored on PACS. All CT scanners at this facility use dose modulation, iterative reconstruction, and/or weight based d osing when appropriate to reduce radiation dose to as low as reasonably achievable (ALARA). [facility]: Dose Right [facility]: CareDose [facility]: Dose Right [facility]: Teradose 4D [facility]: [employer] RADIATION DOSE: CT Rad equipment meets quality standard of care and radiation dose reduction techniq ues were employed. CTDIvol: 30.4 mGy. DLP: 560 mGy-cm. LIMITATIONS: None. FINDINGS: FACIAL BONES: No fracture or malalignment of the TMJs. ORBITS: The orbits are intact. The globes, extraocular muscles, and optic nerve sheath complexes are symmetric in appearance. There is no intraorbital abnormality. PARANASAL SINUSES: Status post bilateral antrectomies. The polypoid low-attenuation lesion in the fl oor of the left maxillary sinus that could represent a mucous retention cyst. The other paranasal si nuses are clear without mucosal thickening or an air-fluid level. The nasal septum is midline. Ther e is no nasal polyposis. SOFT TISSUES: No mass or edema. INFERIOR BRAIN: No acute abnormality. OTHER: No other finding. IMPRESSION: Status post bilateral antrectomies. The polypoid low-attenuation lesion in the floor of the left maxillary sinus that could represent a mucous retention cyst. The other paranasal sinuses are clear without mucosal thickening or an air-fluid level. The nasal septum is midline. There is n o nasal polyposis. TECHNICAL DOCUMENTATION: JOB ID: [id number] Quality ID # [id number]: Final reports with documentation of one or more dose reduction techniques (e.g., Au tomated exposure control, adjustment of the mA and/or kV according to patient size, use of iterative reconstruction technique) 2010 [employer]- All Rights Reserved Reading location - IP/workstation name: [facility]
[2019-12-29 09:38] VITALS: BP 132/87
== END 2019-12-29 09:41 | disposition home or self-care (01) ==
LOC: ER 04:11
DX: B34.9 Viral infection, unspecified (principal); J34.89 Other specified disorders of nose and nasal sinuses; R09.89 Other specified symptoms and signs involving the circulatory and respiratory systems; H66.90 Otitis media, unspecified, unspecified ear; R05 Cough; R07.89 Other chest pain; R19.8 Other specified symptoms and signs involving the digestive system and abdomen; J45.909 Unspecified asthma, uncomplicated; E78.00 Pure hypercholesterolemia, unspecified; K21.9 Gastro-esophageal reflux disease without esophagitis; Z79.52 Long term (current) use of systemic steroids; Z79.899 Other long term (current) drug therapy; Z88.1 Allergy status to other antibiotic agents; Z98.890 Other specified postprocedural states
CPT/HCPCS: 36415; 70486; 71045; 80053; 82550; 82553; 84484; 85025; 93005; 93010; 99285

== ENCOUNTER 2020-01-31 21:17 | Emergency (ER) | payer OTHER ==
--- NOTE | 2020-01-31 21:54 | EKG REPORT ---
SEVERITY:- NORMAL ECG - SINUS RHYTHM : Confirmed by: Samantha Escalante MD 31-Jan-2020 21:52:42
--- NOTE | 2020-01-31 22:12 | ER Document Report ---
ED Medical Screen (RME) - General Stated Complaint: SHORTNESS OF BREATH,CHEST PAIN Time Seen by Provider: 01/31/20 22:06 Primary Care Provider: EZIO GARRIDO MD [Primary Care Provider] - Follow up as needed Notes: HPI: 50-year-old female presenting to the emergency department complaining of chest pain and shortness of breath that began today. Patient had clot removal surgery from the left calf at [facility] 3 days ago. States they did put a filter in and she is on Xarelto. States she was doing well yesterday, does have an immune deficiency and gives her self plasma treatments weekly subcutaneous and did have a plasma treatment yesterday. Patient has not had a fever. Patient states she developed a blood clot after restarting control for postmenopausal symptoms PHYSICAL EXAMINATION: There is a dressing on the left lower leg from the surgery. Patient is mildly dyspneic with speaking. Lung sounds are decreased bilateral bases. Mild tachycardia I have greeted and performed a rapid initial assessment of this patient. A comprehensive ED assessment and evaluation of the patient, analysis of test results and completion of medical decision making process will be conducted by an additional ED providers. TRAVEL OUTSIDE OF THE [place] IN LAST 30 DAYS: No - Related Data Allergies/Adverse Reactions: nitrofurantoin [From Macrobid] Allergy (Intermediate, Verified 10/23/18 12:45) liver enlargement nitrofurantoin macrocrystalline [From Macrobid] Allergy (Intermediate, Verified 10/23/18 12:45) liver enlargement Past Medical History - Past Medical History Cardiac Medical History: Reports: Hx Atrial Fibrillation, Hx Hypercholesterolemia Denies: Hx Heart Attack, Hx Hypertension Pulmonary Medical History: Reports: Hx Asthma, Hx Pneumonia Denies: Hx Bronchitis, Hx COPD Neurological Medical History: Denies: Hx Seizures Renal/ Medical History: Reports: Hx Kidney Stones, Hx Ovarian Cysts. Denies: Hx Peritoneal Dialysis GI Medical History: Reports: Hx Gastroesophageal Reflux Disease, Hx Colonoscopy, Hx Endoscopy Musculoskeltal Medical History: Denies Hx Arthritis, Reports Hx Musculoskeletal Trauma Psychiatric Medical History: Denies: Hx Depression Traumatic Medical History: Reports: Hx Fractures Past Surgical History: Reports: Hx Appendectomy, Hx Nose Surgery - sinus sx x 5, Hx Orthopedic Surgery - bunion, Hx Tonsillectomy, Hx Tubal Ligation. Denies: Hx Hysterectomy - Immunizations Hx Diphtheria, Pertussis, Tetanus Vaccination: No Physical Exam - Vital signs Vitals: Temp Pulse Resp BP Pulse Ox 97.5 F 101 H 22 H 136/87 H 100 01/31/20 21:39 01/31/20 21:39 01/31/20 21:39 01/31/20 21:39 01/31/20 21:39 Course - Vital Signs Vital signs: Temp Pulse Resp BP Pulse Ox 97.5 F 101 H 22 H 136/87 H 100 01/31/20 21:39 01/31/20 21:39 01/31/20 21:39 01/31/20 21:39 01/31/20 21:39 Doctor's Discharge - Discharge Referrals: EZIO GARRIDO MD [Primary Care Provider] - Follow up as needed
--- NOTE | 2020-01-31 22:48 | RADIOLOGY REPORT (SQ) ---
XR CHEST 1 VIEW HISTORY: SOB. COMPARISON: 12/29/2019 FINDINGS: The heart size is within normal limits. There is no pulmonary vascular congestion. No consolidation, pleural effusion, or pneumothorax is seen. The bony structures are preserved. IMPRESSION: No evidence of acute cardiopulmonary disease.
[2020-01-31 22:57] LABS: INTERNATIONAL RATION (INR) 1.86; PROTHROMBIN TIME 21.7 SEC (11.4-15.4)
--- NOTE | 2020-01-31 23:11 | ER Document Report ---
ED General - General Chief Complaint: Shortness Of Breath Stated Complaint: SHORTNESS OF BREATH,CHEST PAIN Time Seen by Provider: 01/31/20 22:06 Primary Care Provider: EZIO GARRIDO MD [Primary Care Provider] - Follow up as needed Mode of Arrival: Ambulatory Information source: Patient Notes: HPI: 50-year-old female presenting to the emergency department complaining of chest pain and shortness of breath that began today. Patient had clot removal surgery from the left calf at [facility] 3 days ago. States they did put a filter in and she is on Xarelto. States she was doing well yesterday, does have an immune deficiency and gives her self plasma treatments weekly subcutaneous and did have a plasma treatment yesterday. Patient has not had a fever. Patient states she developed a blood clot after restarting control for postmenopausal symptoms TRAVEL OUTSIDE OF THE [place] IN LAST 30 DAYS: No - Related Data Allergies/Adverse Reactions: nitrofurantoin [From Macrobid] Allergy (Intermediate, Verified 10/23/18 12:45) liver enlargement nitrofurantoin macrocrystalline [From Macrobid] Allergy (Intermediate, Verified 10/23/18 12:45) liver enlargement Past Medical History - General Information source: Patient - Social History Smoking Status: Never Smoker Chew tobacco use (# tins/day): No Frequency of alcohol use: None Drug Abuse: None Family History: Arthritis, CAD, CVA, DM, Hyperlipidemia, Hypertension Patient has homicidal ideation: No - Past Medical History Cardiac Medical History: Reports: Hx Atrial Fibrillation, Hx Hypercholesterolemia Denies: Hx Heart Attack, Hx Hypertension Pulmonary Medical History: Reports: Hx Asthma, Hx Pneumonia Denies: Hx Bronchitis, Hx COPD Neurological Medical History: Denies: Hx Seizures Renal/ Medical History: Reports: Hx Kidney Stones, Hx Ovarian Cysts. Denies: Hx Peritoneal Dialysis GI Medical History: Reports: Hx Gastroesophageal Reflux Disease, Hx Colonoscopy, Hx Endoscopy Musculoskeletal Medical History: Denies Hx Arthritis, Reports Hx Musculoskeletal Trauma Psychiatric Medical History: Denies: Hx Depression Traumatic Medical History: Reports: Hx Fractures Past Surgical History: Reports: Hx Appendectomy, Hx Nose Surgery - sinus sx x 5, Hx Orthopedic Surgery - bunion, Hx Tonsillectomy, Hx Tubal Ligation. Denies: Hx Hysterectomy - Immunizations Hx Diphtheria, Pertussis, Tetanus Vaccination: No Review of Systems - Review of Systems Constitutional: No symptoms reported EENT: No symptoms reported Cardiovascular: Dyspnea Respiratory: Cough, Short of breath Gastrointestinal: No symptoms reported Genitourinary: No symptoms reported Female Genitourinary: No symptoms reported Musculoskeletal: No symptoms reported Skin: No symptoms reported Hematologic/Lymphatic: No symptoms reported Neurological/Psychological: No symptoms reported Physical Exam - Vital signs Vitals: Temp Pulse Resp BP Pulse Ox 97.5 F 101 H 22 H 136/87 H 100 01/31/20 21:39 01/31/20 21:39 01/31/20 21:39 01/31/20 21:39 01/31/20 21:39 - Notes Notes: PHYSICAL EXAMINATION: GENERAL: Well-appearing, well-nourished and in no acute distress. HEAD: Atraumatic, normocephalic. EYES: Pupils equal round and reactive to light, extraocular movements intact, conjunctiva are normal. ENT: Nares patent, oropharynx clear without exudates. Moist mucous membranes. NECK: Normal range of motion, supple without lymphadenopathy LUNGS: Breath sounds clear to auscultation bilaterally and equal. No wheezes rales or rhonchi. HEART: Regular rate and rhythm without murmurs ABDOMEN: Soft, nontender, nondistended abdomen. No guarding, no rebound. No masses appreciated. Female : deferred Musculoskeletal: Normal range of motion, no pitting or edema. No cyanosis. NEUROLOGICAL: Cranial nerves grossly intact. Normal speech, normal gait. Normal sensory, motor exams PSYCH: Normal mood, normal affect. SKIN: Warm, Dry, normal turgor, no rashes or lesions noted. Course - Re-evaluation Re-evalutation: Laboratory 01/31/20 01/31/20 01/31/20 22:30 22:30 22:30 WBC 6.7 RBC 3.53 L Hgb 11.8 L Hct 33.3 L MCV 94 MCH 33.4 MCHC 35.4 RDW 14.8 H Plt Count 254 Lymph % (Auto) 28.7 [place] % (Auto) 11.1 Eos % (Auto) 1.4 Baso % (Auto) 1.0 Absolute Neuts (auto) 3.9 Absolute Lymphs (auto) 1.9 Absolute Monos (auto) 0.7 Absolute Eos (auto) 0.1 Absolute Basos (auto) 0.1 Seg Neutrophils % 57.8 PT 21.7 H INR 1.86 Sodium Cancelled Potassium Cancelled Chloride Cancelled Carbon Dioxide Cancelled Anion Gap Cancelled BUN Cancelled Creatinine Cancelled Est GFR ( Amer) Cancelled Est GFR (Non-Af Amer) Cancelled Est GFR (MDRD) Non-Af Cancelled Glucose Cancelled Calcium Cancelled Total Bilirubin Cancelled Direct Bilirubin Cancelled Neonat Total Bilirubin Cancelled Neonat Direct Bilirubin Cancelled Neonat Indirect Bili Cancelled AST Cancelled ALT Cancelled Alkaline Phosphatase Cancelled Troponin I NT-Pro-B Natriuret Pep Total Protein Cancelled Albumin Cancelled EGFR Cancelled 01/31/20 01/31/20 01/31/20 22:30 22:30 22:30 WBC RBC Hgb Hct MCV MCH MCHC RDW Plt Count Lymph % (Auto) [place] % (Auto) Eos % (Auto) Baso % (Auto) Absolute Neuts (auto) Absolute Lymphs (auto) Absolute Monos (auto) Absolute Eos (auto) Absolute Basos (auto) Seg Neutrophils % PT INR Sodium 137.8 Potassium 3.8 Chloride 107 Carbon Dioxide 23 Anion Gap 8 BUN 14 Creatinine 0.82 Est GFR ( Amer) > 60 Est GFR (Non-Af Amer) Est GFR (MDRD) Non-Af > 60 Glucose 97 Calcium 9.5 Total Bilirubin 0.3 Direct Bilirubin 0.0 Neonat Total Bilirubin Not Reportable Neonat Direct Bilirubin Not Reportable Neonat Indirect Bili Not Reportable AST 89 H ALT 65 H Alkaline Phosphatase 71 Troponin I Cancelled < 0.012 NT-Pro-B Natriuret Pep Cancelled 191 H Total Protein 7.2 Albumin 4.1 EGFR Chest X-Ray 01/31/20 22:10 IMPRESSION: No evidence of acute cardiopulmonary disease. Chest/Abdomen CTA 01/31/20 22:10 IMPRESSION: No CT evidence of acute pulmonary embolism. - Vital Signs Vital signs: Temp Pulse Resp BP Pulse Ox 97.5 F 101 H 20 134/88 H 97 01/31/20 21:39 01/31/20 21:39 02/01/20 02:34 02/01/20 02:34 02/01/20 02:34 - Laboratory Result Diagrams: 01/31/20 22:30 01/31/20 22:30 Laboratory results interpreted by me: 01/31/20 01/31/20 01/31/20 22:30 22:30 22:30 RBC 3.53 L Hgb 11.8 L Hct 33.3 L RDW 14.8 H PT 21.7 H AST 89 H ALT 65 H NT-Pro-B Natriuret Pep 01/31/20 22:30 RBC Hgb Hct RDW PT AST ALT NT-Pro-B Natriuret Pep 191 H Discharge - Discharge Clinical Impression: Shortness of breath Chest pain Qualifiers: Chest pain type: chest pain on breathing Qualified Code(s): R07.1 - Chest pain on breathing Condition: Stable Disposition: HOME, SELF-CARE Additional Instructions: Your work-up today was reassuring. The CAT scan of your chest showed no blood clots. Please return to the emergency department for any new or worsening symptoms. Take the muscle relaxer as prescribed for the pain. Continue taking your blood thinners as prescribed by [facility]. Prescriptions: Methocarbamol [Robaxin 750 mg Tablet] 750 mg PO Q6HP PRN #20 tablet PRN Reason: Referrals: EZIO GARRIDO MD [Primary Care Provider] - Follow up as needed
[2020-01-31 23:14] LABS: ABSOLUTE BASOPHILS # (AUTO) 0.1 10^3/uL (0.0-0.2); ABSOLUTE EOSINOPHILS # (AUTO) 0.1 10^3/uL (0.0-0.6); ABSOLUTE LYMPHOCYTES (AUTO) 1.9 10^3/uL (0.5-4.7); ABSOLUTE MONOCYTES (AUTO) 0.7 10^3/uL (0.1-1.4); ABSOLUTE NEUT (AUTO) 3.9 10^3/uL (1.7-8.2); EOSINOPHILS % (AUTO) 1.4 % (0-6); HEMATOCRIT 33.3 % (36.0-47.0); HEMOGLOBIN 11.8 g/dL (12.0-15.5); LYMPHOCYTES % (AUTO) 28.7 % (13-45); MEAN CORPUSCULAR HEMOGLOBIN 33.4 pg (27.0-33.4); MEAN CORPUSCULAR HGB CONC 35.4 g/dL (32.0-36.0); MEAN CORPUSCULAR VOLUME 94 fl (80-97); MONOCYTES % (AUTO) 11.1 % (3-13); PLATELET COUNT 254 10^3/uL (150-450); RED BLOOD COUNT 3.53 10^6/uL (3.72-5.28); RED CELL DISTRIBUTION WIDTH 14.8 % (11.5-14.0); SEGMENTED NEUTROPHILS % (AUTO) 57.8 % (42-78); TOTAL CELLS COUNTED % (AUTO) 100 %; WHITE BLOOD COUNT 6.7 10^3/uL (4.0-10.5)
[2020-02-01 00:15] LABS: ALBUMIN 4.1 g/dL (3.5-5.0); ALKALINE PHOSPHATASE 71 U/L (38-126); ANION GAP 8 (5-19); ASPARTATE AMINO TRANSFERASE 89 U/L (14-36); BILIRUBIN,TOTAL 0.3 mg/dL (0.2-1.3); BLOOD UREA NITROGEN 14 mg/dL (7-20); CALCIUM 9.5 mg/dL (8.4-10.2); CARBON DIOXIDE 23 mmol/L (22-30); CHLORIDE 107 mmol/L (98-107); GLUCOSE 97 mg/dL (75-110); POTASSIUM 3.8 mmol/L (3.6-5.0); TOTAL PROTEIN 7.2 g/dL (6.3-8.2)
[2020-02-01 00:26] LABS: NT PRO BNP 191 pg/mL (<125)
[2020-02-01 00:27] LABS: TROPONIN I < 0.012 ng/mL
--- NOTE | 2020-02-01 01:39 | RADIOLOGY REPORT (SQ) ---
EXAM DESCRIPTION: CT CHEST WITH INTRAVENOUS CONTRAST CLINICAL HISTORY: History of recent surgery and deep vein thrombosis with clinical concern for pulmonary embolism. COMPARISON: Chest radiograph January 31, 2020 TECHNIQUE: CT of the chest was performed with intravenous contrast using pulmonary embolism protocol, followed by CTA of the pulmonary arterial vasculature, with 3D reconstruction of the pulmonary arterial vasculature. The patient was injected with 75 mL Omnipaque 350. This CT exam was performed according to our departmental dose-optimization program, which includes one or more of the following dose reduction techniques: automated exposure control, adjustment of the mA and/or kV according to patient size, and/or use of iterative reconstruction technique. FINDINGS: There are no filling defects in the main pulmonary trunk, first order or the visualized lower order branches of the bilateral pulmonary arteries, to suggest pulmonary embolism. There is no evidence of clinically significant thoracic aortic aneurysm or thoracic aortic dissection. There is no evidence of clinically significant pericardial effusion. There are no airspace infiltrates, pleural effusions or pneumothoraces in the visualized lung anderson. There is no pathological axillary, supraclavicular, mediastinal or hilar lymphadenopathy. No suspicious lytic or blastic osseous lesions are identified. Similar appearing lipomatous lesion with adjacent calcific density is again noted within the partially visualized upper abdomen. Inferior vena cava filter is partially imaged. IMPRESSION: No CT evidence of acute pulmonary embolism.
[2020-02-01 02:43] VITALS: BP 134/88
== END 2020-02-01 02:43 | disposition home or self-care (01) ==
LOC: ER 21:17
DX: R06.02 Shortness of breath (principal); R07.1 Chest pain on breathing; I48.91 Unspecified atrial fibrillation; E78.00 Pure hypercholesterolemia, unspecified; Z79.02 Long term (current) use of antithrombotics/antiplatelets
CPT/HCPCS: 36415; 71045; 71275; 80053; 83880; 84484; 85025; 85610; 93005; 93010; 99285

== ENCOUNTER 2020-05-09 02:30 | Emergency (ER) | payer OTHER ==
--- NOTE | 2020-05-09 03:34 | RADIOLOGY REPORT (SQ) ---
CLINICAL INDICATION: chest pain,congestion, wheezing. TECHNIQUE: PA and lateral views were obtained of the chest COMPARISON: January 31, 2020. FINDINGS: The cardiomediastinal silhouette is normal. The lungs are grossly clear. No evidence of effusion or pneumothorax. Mild chronic parenchymal lung change.. . IMPRESSION: No evidence of active intrathoracic disease .
[2020-05-09] MEDS ORDERED: LEVOFLOXACIN 750 MG TABLET PO ONE (03:48)
[2020-05-09] MEDS ORDERED: PREDNISONE 20 MG TABLET PO ONE (03:49)
[2020-05-09] MEDS ORDERED: HYDROCODONE/ACETAMINOPHEN 5-325 MG (6 TAB/ER DISP) PO PRN (03:49)
--- NOTE | 2020-05-09 03:51 | ER Document Report ---
ED General - General Chief Complaint: Congestion Stated Complaint: SHORTNESS OF BREATH Time Seen by Provider: 05/09/20 03:23 Primary Care Provider: EZIO GARRIDO MD [Primary Care Provider] - Follow up as needed TRAVEL OUTSIDE OF THE [place] 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 The patient's chief complaint is sinus pain and congestion, cough, wheeze. Patient states that she was started on a Z-Stiven 3 days ago and started taking 40 mg of prednisone daily as well. Patient states that initially her symptoms started about 2 weeks ago and seemed to be localized to her chest. She thought maybe she had a bronchitis or some other type of lower respiratory infection. However as her illness has progressed patient feels like she has sinus pain and pressure and upper respiratory symptoms. 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 Patient states she has some bilateral intercostal pain with deep breath that she describes as burning and rates as a 3 out of 5 in terms of pain. Patient complains that she is not sleeping very much secondary to cough. Patient is also concerned about the possibility of having contracted COVID-19. Patient states symptoms are exacerbated, specifically shortness of breath and chest wall pain by exertion and cough. Patient does not feel like she has any alleviating symptoms despite taking Zithromax and 40 mg prednisone daily. Patient denies fever, chills, loss of sense of smell or loss of sense of taste. Associated symptoms: Other - See HPI Exacerbated by: Other - See HPI Relieved by: Other - See HPI - Related Data Allergies/Adverse Reactions: nitrofurantoin [From Macrobid] Allergy (Intermediate, Verified 10/23/18 12:45) liver enlargement nitrofurantoin macrocrystalline [From Macrobid] Allergy (Intermediate, Verified 10/23/18 12:45) liver enlargement Home Medications: prednisone. xarelto Past Medical History - General Information source: Patient - Social History Smoking Status: Never Smoker Chew tobacco use (# tins/day): No Frequency of alcohol use: Occasional Drug Abuse: None Family History: Reviewed & Not Pertinent, Arthritis, CAD, CVA, DM, Hyperlipidemia, Hypertension Patient has homicidal ideation: No - Past Medical History Cardiac Medical History: Reports: Hx Atrial Fibrillation, Hx Hypercholesterolemia Denies: Hx Heart Attack, Hx Hypertension Pulmonary Medical History: Reports: Hx Asthma, Hx Pneumonia Denies: Hx Bronchitis, Hx COPD Neurological Medical History: Denies: Hx Seizures Renal/ Medical History: Reports: Hx Kidney Stones, Hx Ovarian Cysts. Denies: Hx Peritoneal Dialysis GI Medical History: Reports: Hx Gastroesophageal Reflux Disease, Hx Colonoscopy, Hx Endoscopy Musculoskeletal Medical History: Denies Hx Arthritis, Reports Hx Musculoskeletal Trauma Psychiatric Medical History: Denies: Hx Depression Traumatic Medical History: Reports: Hx Fractures Past Surgical History: Reports: Hx Appendectomy, Hx Nose Surgery - sinus sx x 5, Hx Orthopedic Surgery - bunion, Hx Tonsillectomy, Hx Tubal Ligation. Denies: Hx Hysterectomy - Immunizations Hx Diphtheria, Pertussis, Tetanus Vaccination: No Review of Systems - Review of Systems Constitutional: See HPI EENT: Sinus pressure Cardiovascular: Chest pain, Dyspnea Respiratory: Cough, Short of breath Gastrointestinal: No symptoms reported Genitourinary: No symptoms reported Female Genitourinary: No symptoms reported Musculoskeletal: No symptoms reported Skin: No symptoms reported Hematologic/Lymphatic: No symptoms reported Neurological/Psychological: No symptoms reported -: Yes All other systems reviewed and negative Physical Exam - Vital signs Vitals: Temp Pulse Resp BP Pulse Ox 97.9 F 111 H 17 145/93 H 97 05/09/20 02:34 05/09/20 02:34 05/09/20 02:34 05/09/20 02:34 05/09/20 02:34 - Notes Notes: CONSTITUTIONAL [Vital signs reviewed, Patient appears comfortable, Alert and oriented X 3, Normal stature.] HEAD [Atraumatic, Normocephalic.] EYES [Eyes are normal to inspection, No discharge from eyes, Extraocular muscles intact, Sclera are normal, Conjunctiva are normal.] ENT [Ears normal to inspection, Nose examination significant for boggy, erythematous nasal mucosa, Posterior pharynx normal, Mouth normal to inspection. Patient does have maxillary sinus tenderness to percussion, right side greater than left.] NECK [Normal ROM, No jugular venous distention, No meningeal signs, no carotid bruit.] RESPIRATORY CHEST [Chest is nontender, Breath sounds normal, No respiratory distress.] CARDIOVASCULAR [RRR, No murmurs, Normal S1 S2, No rub, No gallop.] ABDOMEN [Abdomen is nontender, No pulsatile masses, No other masses, Bowel sounds normal, No distension, No peritoneal signs, No hernias.] BACK [There is no CVA Tenderness, There is no tenderness to palpation, Normal inspection.] UPPER EXTREMITY [Inspection normal, No cyanosis, No clubbing, No edema, 2+ radial pulses.] LOWER EXTREMITY [Inspection normal, No cyanosis, No clubbing, No edema, No calf tenderness, 2+ femoral pulses.] NEURO [No focal motor deficits, No focal sensory deficits, Speech normal.] SKIN [Skin is warm, Skin is dry, Skin is normal color.] LYMPHATIC [No adenopathy in neck.] PSYCHIATRIC [Normal affect. ] Course - Re-evaluation Re-evalutation: 05/09/20 04:05 Results of ED MSE, plan of care discussed with patient. All questions were answered prior to discharge. Emergency signs and symptoms, reasons to return to the emergency department discussed with patient. - Vital Signs Vital signs: Temp Pulse Resp BP Pulse Ox 97.9 F 111 H 17 145/93 H 97 05/09/20 02:46 05/09/20 02:34 05/09/20 02:34 05/09/20 02:34 05/09/20 02:34 - Diagnostic Test Radiology reviewed: Reports reviewed Discharge - Discharge Clinical Impression: Person under investigation for COVID-19 Acute maxillary sinusitis Qualifiers: Recurrence: not specified as recurrent Qualified Code(s): J01.00 - Acute maxillary sinusitis, unspecified Asthma exacerbation Qualifiers: Asthma severity: unspecified severity Asthma persistence: unspecified Qualified Code(s): J45.901 - Unspecified asthma with (acute) exacerbation Condition: Stable Disposition: HOME, SELF-CARE Instructions: COVID-19 Guidance for Persons Under Investigation Additional Instructions: Return to the Emergency Department without delay if any worse. HOME CARE INSTRUCTIONS & INFORMATION: Thank you for choosing us for your medical needs. We hope you're satisfied with the care you received. After you leave, you must properly care for your problem and, at the same time, observe its progress. Any condition can change. Some illnesses can change rapidly over hours or days. If your condition worsens, return to the Emergency Department or see your physician promptly. ABOUT YOUR X-RAYS AND EKG'S: If you had an EKG or X-rays taken, they have been read by the Emergency Physician. The X-rays and EKG's will also be read by a Radiologist or [employer] Specialist within 24 hours. If discrepancies are noted, you will be notified by telephone. Please be certain the ED has a correct telephone number & address where you can be reached. Also, realize that some fractures or abnormalities do not show up on initial X-rays. If your symptoms continue, see your physician. ABOUT YOUR LABORATORY TEST: If you had laboratory tests, the results have been reviewed by the Emergency Physician. Some test results (for example cultures) may not be available for several days. You will be contacted if any test result shows you need additional treatment. Please be certain the ED has a correct telephone number and address where you can be reached. ABOUT YOUR MEDICATIONS: You will receive instructions on how to take your medicine on the prescription label you receive. Additional information may be provided by the Pharmacy. If you have questions afterwards, call the ED for cl arification or further instructions. Some prescribed medications may cause drowsiness. Do not perform tasks such as driving a car or operating machinery without consulting your Pharmacist. If you feel you need a refill of pain medication, your condition will need re-evaluation. Please do not call for a refill of any medication. ABOUT YOUR SIGNATURE: Signature of this document acknowledges to followin. Understanding that you received emergency treatment and that you may be released before al medical problems are known or treated. Please be certain the ED has a correct phone number & address where you can be reached. 2. Acknowledgement that you will arrange for follow-up care as recommended. 3. Authorization for the Emergency Physician to provide information to your follow-up Physician in order to maximize your care. AT ANY TIME, IF YOUR SYMPTOMS CHANGE SIGNIFICANTLY OR WORSEN OR YOU DEVELOP NEW SYMPTOMS, RETURN TO THE EMERGENCY DEPARTMENT IMMEDIATELY FOR RE-EVALUATION. OUR GOAL IS TO PROVIDE EXCELLENT MEDICAL CARE! WE HOPE THAT WE HAVE MET YOUR EXPECTATIONS DURING YOUR EMERGENCY DEPARTMENT VISIT AND THAT YOU FEEL YOU HAVE RECEIVED EXCELLENT CARE! Sinusitis You have sinusitis, an infection of the sinus cavities of the face. The sinuses are air-filled chambers which open into the inside of the nose. Bacteria and pus fill a sinus, causing pain, drainage, and fever. Sinusitis is treated with antibiotics. Often, expectorants (to thin the sinus mucous) or decongestants (to reduce swelling) are prescribed as well. Healing requires seven to 10 days. Avoid chemical fumes, pollens, dusts, and smoke (especially cigarette smoke). Keep the air humidified in your bedroom and work area and take plenty of liquids by mouth. This condition can be serious if the infection spreads. If your symptoms worsen, or if you develop severe headache, high fever, stiff neck, or a rash, you must call the doctor or return for re-evaluation. Prescriptions: Hydrocodone/Chlorphen P-Stirex [Hydrocodone-Chlorphen ER Susp] 5 ml PO QHS PRN #60 ml PRN Reason: cough Prednisone [Deltasone 20 mg Tablet] 3 tab PO DAILY 4 Days #12 tablet Levofloxacin [Levaquin 750 mg Tablet] 750 mg PO DAILY 4 Days #4 tablet Forms: Return to Work Referrals: EZIO GARRIDO MD [Primary Care Provider] - Follow up as needed
[2020-05-09 04:29] VITALS: BP 132/92
== END 2020-05-09 04:29 | disposition home or self-care (01) ==
LOC: ER 02:30
DX: J01.00 Acute maxillary sinusitis, unspecified (principal); J45.901 Unspecified asthma with (acute) exacerbation; R05 Cough; R07.1 Chest pain on breathing; I48.91 Unspecified atrial fibrillation; Z79.01 Long term (current) use of anticoagulants; Z87.01 Personal history of pneumonia (recurrent); Z88.1 Allergy status to other antibiotic agents; Z20.828 Contact with and (suspected) exposure to other viral communicable diseases
CPT/HCPCS: 99284; 87635; 71046; J7512; C9803

== ENCOUNTER 2020-06-29 14:54 | Emergency (ER) | payer OTHER ==
--- NOTE | 2020-06-29 15:41 | ER Document Report ---
ED Medical Screen (RME) - General Chief Complaint: Chest Pain Stated Complaint: CHEST PAIN Time Seen by Provider: 06/29/20 15:27 Primary Care Provider: EZIO GARRIDO MD [Primary Care Provider] - Follow up as needed TRAVEL OUTSIDE OF THE [place] IN LAST 30 DAYS: No - HPI Notes: 06/29/20 15:40 44-year-old female with a history of [place] syndrome on Xarelto that was diagnosed in January 2020 presents to the emergency room for back pain that radiated to her right and left chest wall that started approximately 20 minutes ago and resolved itself since she came to the emergency room. Reports pain was sharp denies any radiation of pain. Does report nausea but denies any vomiting, headache abdominal pain. She states that shortness of breath did resolve as well as when she came to the emergency room. Patient states she was recently placed on Flagyl for bacterial vaginosis, she is unsure if this has anything to do with it. Denies any prior history of cardiac issues. I have greeted and performed a rapid initial assessment of this patient. A comprehensive ED assessment and evaluation of the patient, analysis of test results and completion of the medical decision making process will be conducted by additional ED providers. PHYSICAL EXAMINATION: GENERAL: Well-appearing, well-nourished and in no acute distress. HEAD: Atraumatic, normocephalic. EYES: Pupils equal round extraocular movements intact, conjunctiva are normal. NECK: Normal range of motion CV: s1, s2 regular LUNGS: No respiratory distress - Related Data Allergies/Adverse Reactions: nitrofurantoin [From Macrobid] Allergy (Intermediate, Verified 10/23/18 12:45) liver enlargement nitrofurantoin macrocrystalline [From Macrobid] Allergy (Intermediate, Verified 10/23/18 12:45) liver enlargement Past Medical History - Past Medical History Cardiac Medical History: Reports: Hx Atrial Fibrillation, Hx Hypercholesterolemia Denies: Hx Heart Attack, Hx Hypertension Pulmonary Medical History: Reports: Hx Asthma, Hx Pneumonia Denies: Hx Bronchitis, Hx COPD Neurological Medical History: Denies: Hx Seizures Renal/ Medical History: Reports: Hx Kidney Stones, Hx Ovarian Cysts. Denies: Hx Peritoneal Dialysis GI Medical History: Reports: Hx Gastroesophageal Reflux Disease, Hx Colonoscopy, Hx Endoscopy Musculoskeltal Medical History: Denies Hx Arthritis, Reports Hx Musculoskeletal Trauma Psychiatric Medical History: Denies: Hx Depression Traumatic Medical History: Reports: Hx Fractures Past Surgical History: Reports: Hx Appendectomy, Hx Nose Surgery - sinus sx x 5, Hx Orthopedic Surgery - bunion, Hx Tonsillectomy, Hx Tubal Ligation. Denies: Hx Hysterectomy - Immunizations Hx Diphtheria, Pertussis, Tetanus Vaccination: No Physical Exam - Vital signs Vitals: Temp Pulse Resp BP Pulse Ox 98.0 F 93 20 121/83 100 06/29/20 15:07 06/29/20 15:07 06/29/20 15:07 06/29/20 15:07 06/29/20 15:07 Course - Vital Signs Vital signs: Temp Pulse Resp BP Pulse Ox 98.0 F 93 20 121/83 100 06/29/20 15:07 06/29/20 15:07 06/29/20 15:07 06/29/20 15:07 06/29/20 15:07 Doctor's Discharge - Discharge Referrals: EZIO GARRIDO MD [Primary Care Provider] - Follow up as needed
--- NOTE | 2020-06-29 16:12 | RADIOLOGY REPORT (SQ) ---
EXAM DESCRIPTION: CHEST SINGLE VIEW IMAGES COMPLETED DATE/TIME: 06/29/2020 4:04 pm REASON FOR STUDY: chest pain COMPARISON: 05/09/2020 NUMBER OF VIEWS: One view. TECHNIQUE: Single frontal radiographic view of the chest acquired. LIMITATIONS: None. FINDINGS: LUNGS AND PLEURA: No opacities, masses or pneumothorax. No pleural effusion. MEDIASTINUM AND HILAR STRUCTURES: No masses. Contour normal. HEART AND VASCULAR STRUCTURES: Heart normal in size. Normal vasculature. BONES: No acute findings. HARDWARE: None in the chest. OTHER: No other significant finding. IMPRESSION: NO SIGNIFICANT RADIOGRAPHIC FINDING IN THE CHEST. TECHNICAL DOCUMENTATION: JOB ID: [id number] 2010 [employer]- All Rights Reserved Reading location - IP/workstation name: [email or web address]
[2020-06-29 16:14] LABS: ABSOLUTE MONOCYTES (AUTO) 0.7 10^3/uL (0.1-1.4); ABSOLUTE NEUT (AUTO) 6.2 10^3/uL (1.7-8.2); BASOPHILS % (AUTO) 0.5 % (0-2); EOSINOPHILS % (AUTO) 0.2 % (0-6); HEMATOCRIT 41.6 % (36.0-47.0); HEMOGLOBIN 13.9 g/dL (12.0-15.5); MEAN CORPUSCULAR HEMOGLOBIN 30.6 pg (27.0-33.4); MEAN CORPUSCULAR HGB CONC 33.5 g/dL (32.0-36.0); MEAN CORPUSCULAR VOLUME 91 fl (80-97); MONOCYTES % (AUTO) 8.1 % (3-13); PLATELET COUNT 271 10^3/uL (150-450); RED BLOOD COUNT 4.55 10^6/uL (3.72-5.28); RED CELL DISTRIBUTION WIDTH 15.7 % (11.5-14.0); SEGMENTED NEUTROPHILS % (AUTO) 69.2 % (42-78); TOTAL CELLS COUNTED % (AUTO) 100 %
[2020-06-29 16:23] LABS: INTERNATIONAL RATION (INR) 1.03; PROTHROMBIN TIME 13.7 SEC (11.4-15.4)
[2020-06-29 16:31] LABS: ALBUMIN 4.8 g/dL (3.5-5.0); ALKALINE PHOSPHATASE 83 U/L (38-126); ANION GAP 7 (5-19); ASPARTATE AMINO TRANSFERASE 22 U/L (14-36); BILIRUBIN,TOTAL 0.4 mg/dL (0.2-1.3); BLOOD UREA NITROGEN 12 mg/dL (7-20); CALCIUM 9.8 mg/dL (8.4-10.2); CARBON DIOXIDE 28 mmol/L (22-30); CHLORIDE 101 mmol/L (98-107); CREATINE KINASE 41 U/L (30-135); GLUCOSE 92 mg/dL (75-110); POTASSIUM 4.2 mmol/L (3.6-5.0); TOTAL PROTEIN 7.8 g/dL (6.3-8.2)
[2020-06-29 16:43] LABS: CREATINE KINASE MB 0.48 ng/mL (<4.55); TROPONIN I < 0.012 ng/mL
--- NOTE | 2020-06-29 17:39 | ER Document Report ---
ED General - General Chief Complaint: Chest Pain Stated Complaint: CHEST PAIN Time Seen by Provider: 06/29/20 15:27 Primary Care Provider: EZIO GARRIDO MD [Primary Care Provider] - Follow up as needed TRAVEL OUTSIDE OF THE [place] IN LAST 30 DAYS: No - HPI Notes: Patient is a 50-year-old female who presents emergency department for evaluation of upper back pain that radiated into her chest. She was at home, doing work, walking around. Nothing out of the ordinary. She had a sudden onset of a sharp pain that radiated from her upper back into her chest. She thought sitting down would make it better and it did not improve. She developed associated nausea, diaphoresis, shortness of breath. She got a ride here to the emergency department for further evaluation. Prior to her arrival her pain resolved. At this point she is asymptomatic. She is never had any symptoms like that in the past. She has been taking her medications as prescribed. - Related Data Allergies/Adverse Reactions: nitrofurantoin [From Macrobid] Allergy (Intermediate, Verified 10/23/18 12:45) liver enlargement nitrofurantoin macrocrystalline [From Macrobid] Allergy (Intermediate, Verified 10/23/18 12:45) liver enlargement Home Medications: xarelto, caitlyn, singulair, advair, proventil, sulfasalazine, hydrocortizone, hizentra, xolar, lasix, pantoprazole, ambien, Past Medical History - General Information source: Patient - Social History Smoking Status: Never Smoker Chew tobacco use (# tins/day): No Frequency of alcohol use: Occasional Drug Abuse: None Family History: Reviewed & Not Pertinent, Arthritis, CAD, CVA, DM, Hyperlipidemia, Hypertension - Medical History Notes: Combined variable immunodeficiency - Past Medical History Cardiac Medical History: Reports: Hx DVT, Hx Hypercholesterolemia Denies: Hx Heart Attack, Hx Hypertension Pulmonary Medical History: Reports: Hx Asthma, Hx Pneumonia Denies: Hx Bronchitis, Hx COPD Neurological Medical History: Denies: Hx Seizures Renal/ Medical History: Reports: Hx Kidney Stones, Hx Ovarian Cysts. Denies: Hx Peritoneal Dialysis GI Medical History: Reports: Hx Gastroesophageal Reflux Disease, Hx Colonoscopy, Hx Endoscopy Musculoskeletal Medical History: Denies Hx Arthritis, Reports Hx Musculoskeletal Trauma, Reports Other - Ankylosing spondylitis, unknown autoimmune disorder Psychiatric Medical History: Denies: Hx Depression Traumatic Medical History: Reports: Hx Fractures Past Surgical History: Reports: Hx Appendectomy, Hx Nose Surgery - sinus sx x 5, Hx Orthopedic Surgery - bunion, Hx Tonsillectomy, Hx Tubal Ligation. Denies: Hx Hysterectomy - Immunizations Hx Diphtheria, Pertussis, Tetanus Vaccination: No Review of Systems - Review of Systems Constitutional: See HPI EENT: No symptoms reported Cardiovascular: See HPI Respiratory: See HPI Gastrointestinal: See HPI Genitourinary: No symptoms reported Musculoskeletal: See HPI Skin: No symptoms reported Neurological/Psychological: No symptoms reported Physical Exam - Vital signs Vitals: Temp Pulse Resp BP Pulse Ox 98.0 F 93 20 121/83 100 06/29/20 15:07 06/29/20 15:07 06/29/20 15:07 06/29/20 15:07 06/29/20 15:07 - Notes Notes: Vital signs reviewed, please refer to chart. Head is normocephalic, atraumatic. Pupils equal round, reactive to light. Neck is supple without meningismus. Heart is regular rate and rhythm. Lungs are clear to auscultation, chest wall excursion equal bilaterally. Abdomen is soft, nontender, normoactive bowel sounds throughout. Examination of the spine shows no midline tenderness or step-off. No paraspinal musculature tenderness is appreciated. Extremities without cyanosis, clubbing. Posterior calves are nontender. Peripheral pulses are equal. Skin is warm and dry. Patient is awake, alert, neurological exam is nonfocal. Course - Re-evaluation Re-evalutation: 06/29/20 17:37 Patient is a 50-year-old female with multiple medical problems, including DVT currently on Xarelto, who presents to the emergency department for evaluation of sudden upper back pain with radiation into the chest. She had associated diaphoresis, shortness of breath, and nausea. Her pain is resolved at this time. 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 I am concerned about the possibility of pulmonary embolus in this patient. It does seem that her DVT in the past was provoked by OCPs, but she also has multiple autoimmune issues, and I am concerned about hypercoagulable state. CT angiogram is ordered. She remains pain-free. I explained to her the need for repeat troponin. She is told to notify nursing or myself about any changes in her symptoms. She is currently stable. - Vital Signs Vital signs: Temp Pulse Resp BP Pulse Ox 98.0 F 93 15 141/92 H 99 06/29/20 15:07 06/29/20 15:07 06/29/20 18:01 06/29/20 18:01 06/29/20 18:01 - Laboratory Result Diagrams: 06/29/20 15:58 06/29/20 15:58 Laboratory results interpreted by me: 06/29/20 06/29/20 15:58 15:58 RDW 15.7 H Sodium 136.3 L - EKG Interpretation by Me Additional EKG results interpreted by me: 06/29/20 17:38 Sinus mechanism. Normal axis and intervals. No acute ST changes concerning for ischemia or infarction. No significant change compared to prior study. Discharge - Discharge Clinical Impression: Chest pain Qualifiers: Chest pain type: unspecified Qualified Code(s): R07.9 - Chest pain, unspecified Acute thoracic back pain Qualifiers: Back pain laterality: bilateral Qualified Code(s): M54.6 - Pain in thoracic spine Condition: Stable Disposition: HOME, SELF-CARE Instructions: Chest Pain of Unclear Cause ([facility]) Additional Instructions: No clear cause was identified for your chest pain today. Please follow-up with your primary care provider this week in regards to this issue. Return to the emergency department with worsening or new concerning symptoms of any sort. Referrals: EZIO GARRIDO MD [Primary Care Provider] - Follow up as needed
--- NOTE | 2020-06-29 18:46 | EKG REPORT ---
SEVERITY:- ABNORMAL ECG - SINUS RHYTHM LEFT ATRIAL ABNORMALITY : Confirmed by: Jose Barth MD 29-Jun-2020 18:45:21
--- NOTE | 2020-06-29 19:10 | RADIOLOGY REPORT (SQ) ---
EXAM DESCRIPTION: CTA CHEST IMAGES COMPLETED DATE/TIME: 06/29/2020 6:41 pm REASON FOR STUDY: evaluate for PE, upper back/CP, DVT Hx COMPARISON: 02/01/2020 TECHNIQUE: CT scan of the chest performed using helical scanning technique with dynamic intravenous contrast injection. Images reviewed with lung, soft tissue and bone windows. Reconstructed coronal and sagittal MPR images reviewed. Additional 3 dimensional post-processing performed to develop Maximal Intensity Projection images (ND P). All images stored on PACS. All CT scanners at this facility use dose modulation, iterative reconstruction, and/or weight based d osing when appropriate to reduce radiation dose to as low as reasonably achievable (ALARA). [facility]: Dose Right [facility]: CareDose [facility]: Dose Right [facility]: Teradose 4D [facility]: Sionic Mobile CONTRAST TYPE AND DOSE: contrast/concentration: Isovue 350.00 mmol/ml; Total Contrast Delivered: 75. 0 ml; Total Saline Delivered: 67.0 ml Contrast bolus adequate for pulmonary arteries and aorta. RENAL FUNCTION: BUN 12 creatinine 0.78 RADIATION DOSE: CT Rad equipment meets quality standard of care and radiation dose reduction techniq ues were employed. CTDIvol: 15.8 - 19.8 mGy. DLP: 569 mGy-cm. . LIMITATIONS: None. FINDINGS: LUNGS AND PLEURA: No masses, infiltrates, or pneumothorax. No pleural effusions or pleura l calcifications. AORTA AND GREAT VESSELS: No aneurysm. No dissection. HEART: No pericardial effusion. No significant coronary artery calcifications. PULMONARY ARTERIES: No emboli visualized in the main pulmonary arteries or the segmental branches. HILAR AND MEDIASTINAL STRUCTURES: No identified masses or abnormal nodes. HARDWARE: None in the chest. UPPER ABDOMEN: Fat -density subcapsular lesion in the dome of the liver. THYROID AND OTHER SOFT TISSUES: No masses. No adenopathy. BONES: No acute or significant finding. 3D MIPS: Confirm above findings. OTHER: No other significant finding. IMPRESSION: 1. No pulmonary embolus. No aortic aneurysm or dissection. 2. Small fat density lesion in the dome of the liver. COMMENT: Quality ID # [id number]: Final reports with documentation of one or more dose reduction techniques (e.g., Automated exposure control, adjustment of the mA and/or kV according to patient size, use of iterative reconstruction technique) TECHNICAL DOCUMENTATION: JOB ID: [id number] [employer]- All Rights Reserved Reading location - IP/workstation name: [email or web address]
[2020-06-29 19:57] VITALS: BP 128/89
== END 2020-06-29 20:04 | disposition home or self-care (01) ==
LOC: ER 14:54
DX: R07.9 Chest pain, unspecified (principal); M54.6 Pain in thoracic spine; E78.00 Pure hypercholesterolemia, unspecified; Z79.01 Long term (current) use of anticoagulants; Z86.718 Personal history of other venous thrombosis and embolism; Z98.51 Tubal ligation status
CPT/HCPCS: 36415; 71045; 71275; 80053; 82550; 82553; 84484; 85025; 85610; 93005; 93010; 99285